=== PATIENT | female | born 1975 | race Caucasian/White ===

== ENCOUNTER → 2017-10-24 13:58 | Outpatient (REF) | payer BC, SELFPAY ==
[2017-10-24 14:57] LABS: Basophils % 0.2 % (0.1-2.0); Eosinophils # 0.1 K/mm3 (0.0-0.4); Eosinophils % 1.3 % (0.1-12.0); Hematocrit 44.1 % (37.0-47.0); Hemoglobin 14.4 g/dL (12.2-16.2); Lymphocytes % 27.9 K/mm3 (10-50); Mean Corpuscular HGB Conc 32.7 g/dL (31.8-35.4); Mean Corpuscular Hemoglobin 29.6 pg (27.0-31.2); Mean Corpuscular Volume 90.4 fl (81-99); Mean Platelet Volume 8.6 fl (7.4-10.4); Monocytes # 0.6 K/mm3 (0.1-1.0); Monocytes % 5.4 % (1.7-9.3); Neutrophils # 6.9 K/mm3 (1.8-7.8); Neutrophils % 65.1 % (37.0-80.0); Platelet Count 271 K/mm3 (142-424); Red Blood Count 4.88 M/mm3 (4.20-5.40); Red Cell Distribution Width 13.6 % (11.5-17.5); White Blood Count 10.6 K/mm3 (4.8-10.8)
[2017-10-24 15:16] LABS: Hemoglobin A1C 5.1 % (0.0-7.0)
[2017-10-24 15:35] LABS: Alanine Aminotransferase 23 U/L (12-78); Albumin Level 4.1 gm/dL (3.4-5.0); Albumin/Globulin Ratio 1.4 (1.1-1.8); Alkaline Phosphatase 118 U/L (46-116); Anion Gap 12.5 mEq/L (5-15); Aspartate Amino Transferase 15 U/L (15-37); Bilirubin,Total 0.3 mg/dL (0.2-1.0); Blood Urea Nitrogen 11 mg/dL (7-18); Calcium 9.6 mg/dL (8.5-10.1); Carbon Dioxide 27 mmol/L (21.0-32.0); Chloride 104 mmol/L (98-107); Chol/HDL Ratio 3.3 (1-3.5); Cholesterol 176 mg/dL (140-200); Creatinine,Serum 0.66 mg/dL (0.55-1.02); Estimated Glomerular Filt Rate 98 ml/min (>60); Free T4 (Free Thyroxine) 1.08 ng/dl (0.76-1.46); GFR (African American) 118 ML/MIN (>60); Glucose 97 mg/dL (74-106); HDL Cholesterol 54 mg/dL (29-89); LDL Cholesterol 96 mg/dL (0-130); Potassium 4.5 mmoL/L (3.5-5.1); Sodium 139 mmol/L (136-145); Thyroid Stimulating Hormone 1.54 uIU/ml (0.358-3.740); Total Protein,Serum 7.1 gm/dL (6.4-8.2); Triglycerides 130 mg/dL (30-200); VLDL Cholesterol 26 mg/dL (0-40)
[2017-10-26 13:31] LABS: Vitamin D 25 Hydroxy 15.2 ng/mL (30.0-100.0)
== END ==
LOC: LAB 13:58
PROVIDERS: Visit Provider Nurse Practitioner Family
DX: R53.83 Other fatigue (principal)
CPT/HCPCS: 80053; 80061; 82652; 83036; 84439; 84443; 85025

== ENCOUNTER → 2017-12-12 13:07 | Outpatient (CLI) | payer BC, SELFPAY ==
[2017-12-13 12:26] LABS: FSH 3.7 mIU/mL (.)
== END ==
PROVIDERS: Visit Provider Obstetrics & Gynecology
DX: N97.0 Female infertility associated with anovulation (principal)
CPT/HCPCS: 36415; 83001; 84144

== ENCOUNTER → 2017-12-14 08:30 | Outpatient (CLI) | payer BC, SELFPAY ==
--- NOTE | 2017-12-14 08:31 | XR_ITS ---
XR foot wt bearing LT 3V HISTORY: ITS.REASON: pain ORDERING PHYSICIAN: Kizzy Longo DPM PATIENT AGE: 42 years COMPARISON: None FINDINGS: No fracture or dislocation. No lytic or blastic change. There is normal mineralization.. The joint spaces are well-preserved. No significant degenerative/arthritic changes. No erosive changes evident. IMPRESSION: Negative, no acute finding
--- NOTE | 2017-12-14 08:31 | XR_ITS ---
XR foot wt bearing RT 3V HISTORY: ITS.REASON: pain ORDERING PHYSICIAN: Kizzy Longo DPM PATIENT AGE: 42 years COMPARISON: None FINDINGS: No fracture or dislocation. No lytic or blastic change. There is normal mineralization.. The joint spaces are well-preserved. No significant degenerative/arthritic changes. No erosive changes evident. IMPRESSION: Negative, no acute finding
== END ==
PROVIDERS: Visit Provider Podiatrist
DX: M79.673 Pain in unspecified foot (principal)
CPT/HCPCS: 73630

== ENCOUNTER 2018-03-07 22:11 | Observation (INO) ==
[2018-03-07 22:34] LABS: Appearance,Urine CLEAR (Clear); Bilirubin,Urine Negative (Negative); Blood, Urine 1+ (Negative); Color,Urine YELLOW (Yellow); Glucose,Urine (UA) Negative (Negative); Ketones,Urine 1+ (Negative); Leukocyte Esterase,Urine Negative (Negative); Microscopic, Urine URINE MICROSCOPIC (MICROSCOPIC); Protein,Urine Negative (Negative); Specific Gravity, Urine 1.025 (1.005-1.030); Urobilinogen,Urine 0.2 EU/dl (0.2)
[2018-03-07 22:40] LABS: Bacteria,Urine 1+ /lpf; Mucus,Urine 1+ /lpf; WBC,Urine Occasional #/hpf (0-3)
[2018-03-07 22:49] LABS: Basophils # 0.1 K/mm3 (0-0.2); Basophils % 0.3 % (0.1-2.0); Eosinophils # 0.1 K/mm3 (0.0-0.4); Eosinophils % 0.5 % (0.1-12.0); Hematocrit 46.2 % (37.0-47.0); Lymphocytes # 3.4 K/mm3 (0.7-4.5); Lymphocytes % 16.1 K/mm3 (10-50); Mean Corpuscular HGB Conc 32.4 g/dL (31.8-35.4); Mean Corpuscular Hemoglobin 29.1 pg (27.0-31.2); Mean Corpuscular Volume 89.6 fl (81-99); Mean Platelet Volume 8.4 fl (7.4-10.4); Monocytes # 0.7 K/mm3 (0.1-1.0); Monocytes % 3.4 % (1.7-9.3); Neutrophils # 16.7 K/mm3 (1.8-7.8); Neutrophils % 79.8 % (37.0-80.0); Platelet Count 270 K/mm3 (142-424); Red Blood Count 5.15 M/mm3 (4.20-5.40); Red Cell Distribution Width 13.8 % (11.5-17.5); White Blood Count 20.9 K/mm3 (4.8-10.8)
[2018-03-07 22:54] LABS: Albumin Level 4.1 gm/dL (3.4-5.0); Albumin/Globulin Ratio 1.1 (1.1-1.8); Anion Gap 10.7 mEq/L (5-15); Bilirubin,Total 0.4 mg/dL (0.2-1.0); Calcium 9.3 mg/dL (8.5-10.1); Globulin 3.7 gm/dl (1.3-3.2); Potassium 3.7 mmoL/L (3.5-5.1); Total Protein,Serum 7.8 gm/dL (6.4-8.2)
--- NOTE | 2018-03-07 23:05 | Emergency Department Note ---
ED Disposition Clinical Impression: Acute appendicitis Qualifiers: Acute appendicitis type: with localized peritonitis Qualified Code(s): K35.3 - Acute appendicitis with localized peritonitis Disposition: Still a Patient Condition on Discharge: Good Instructions: DI for Acute Abdomen Referrals: Ruth Jasmine APRN [Primary Care Provider] - - Critical Care Critical Care Time: No Attestation: On 03/07/18, the high probability of a clinically significant, sudden or life threatening deterioration of the following system(s) required my full and direct attention, intervention and personal management. The time I documented below is in addition to time spent performing reported procedures but includes the following listed in this critical care notation. Medical Decision Making - José Inquiry Pt receiving controlled substance: Yes José was queried for this patient: No Reason not queried -: Emergent pt cond-no time Risks and benefits of using a controlled substance: were not discussed with pt by me Vital Signs: 03/07/18 22:12 03/07/18 22:53 03/07/18 23:25 Temperature 98.5 F 98.5 F Temperature Source Oral Oral Pulse Rate [Left Brachial] 104 H 82 79 Respiratory Rate 15 18 14 Blood Pressure [Left Arm] 134/79 124/75 125/79 Blood Pressure Mean [Left Arm] 97 91 94 Blood Pressure Source [Left Arm] Automatic Cuff Blood Pressure Position [Left Arm] Supine 02 Sat by Pulse Oximetry 95 96 96 Oxygen Delivery Method Room Air - Lab Data Lab Results 03/07/18 22:28: Urine Color Yellow, Urine Appearance Clear, Urine pH 6.0, Ur Specific [place] 1.025, Urine Protein Negative, Urine Glucose (UA) Negative, Urine Ketones 1+, Urine Blood 1+, Urine Nitrate Negative, Urine Bilirubin Negative, Urine Urobilinogen 0.2, Ur Leukocyte Esterase Negative, Urine RBC 3-5, Urine WBC Occasional, Ur Squamous Epith Cells 3-5, Urine Bacteria 1+, Urine Mucus 1+ 03/07/18 22:30: WBC 20.9 H*, RBC 5.15, Hgb 15.0, Hct 46.2, MCV 89.6, MCH 29.1, MCHC 32.4, RDW 13.8, Plt Count 270, MPV 8.4, Neut % (Auto) 79.8, Lymph % (Auto) 16.1, [place] % (Auto) 3.4, Eos % (Auto) 0.5, Baso % (Auto) 0.3, Neut # (Auto) 16.7 H, Lymph # (Auto) 3.4, [place] # (Auto) 0.7, Eos # (Auto) 0.1, Baso # (Auto) 0.1, Total Counted 100, Neutrophils % (Manual) 84 H, Lymphocytes % (Manual) 14, Monocytes % (Manual) 1 L, Eosinophils % (Manual) 1, Platelet Estimate Normal, Anisocytosis 1+ 03/07/18 22:30: Urine HCG, Qual Negative 03/07/18 22:30: Sodium 136, Potassium 3.7, Chloride 102, Carbon Dioxide 27, Anion Gap 10.7, BUN 7, Creatinine 0.61, Estimated Creat Clear 119, Estimated GFR 107, Est GFR ( Amer) 129, Glucose 96, Calcium 9.3, Total Bilirubin 0.4, AST 12 L, ALT 23, Alkaline Phosphatase 121 H, Total Protein 7.8, Albumin 4.1, Globulin 3.7 H, Albumin/Globulin Ratio 1.1, Amylase 62, Lipase 93 03/07/18 22:30: Troponin I < 0.02 Result diagrams: 03/07/18 22:30 03/07/18 22:30 Orders (Tests/Meds): ED MEDICATIONS Generic Name Dose Route Start Last Admin Trade Name Freq PRN Reason Stop Dose Admin Sodium Chloride 1,000 mls @ 150 mls/hr 03/08/18 00:15 Sod Chlor 0.9% 1000ml Bag IV 03/08/18 06:54 .[id number] KIT Discontinued Medications Generic Name Dose Route Start Last Admin Trade Name Freq PRN Reason Stop Dose Admin Famotidine 20 mg 03/07/18 22:22 03/07/18 22:29 Pepcid 20mg/2ml Vial IV 03/07/18 22:23 20 mg ONCE ONE Administration Sodium Chloride 1,000 mls @ 999 mls/hr 03/07/18 22:30 03/07/18 22:30 Sod Chlor 0.9% 1000ml Bag IV 03/07/18 23:30 999 mls/hr .Q1H1M KIT Administration Metoclopramide HCl 10 mg 03/07/18 22:22 03/07/18 22:30 Reglan 10mg/2ml Vial IVP 03/07/18 22:23 10 mg ONCE ONE Administration Ondansetron HCl 4 mg 03/07/18 22:22 03/07/18 22:30 Zofran 4mg/2ml Vial IV 03/07/18 22:23 4 mg ONCE ONE Administration ORDERS Category Date Time Status CT abdomen pelvis w con Stat Cat Scan 03/07/18 22:44 Ordered Urinalysis and Microscopic Stat Lab 03/07/18 22:28 Ordered - CT Data CT Scan: Abdomen, Pelvis Time Received: 00:[address] Reviewed: Yes: I discussed the CT results w/the radiologist, I have viewed the radiologist's interpretation Findings Narrative: CT scan interpreted by [facility] radiologist. Discussed with radiologist. Faxed report received and reviewed: Appendix is widened with a mildly thickened enhancing wall, particularly at the base. There is debris within the lumen of the appendix. No significant inflammatory changes in the periappendiceal fat. Findings could represent early acute appendicitis. Hiatal hernia. - ECG Data Tracing #1 EKG interpreted by Irwin Goodson MD: Rhythm: sinus Rate: 81 [place]: normal Ectopy: none Conduction: normal ST Segment Changes: none T Wave Changes: none Q Waves: none No evidence of acute ischemia or injury - Physician Consults Physician Consulted: Damien Time: 00:11 Reason -: Admission Comment/Response: Agrees to admit the patient to the hospital. We discussed the patient's clinical information, including history, exam, laboratory and radiology results and ED course. Per hospital procedure, I will write temporary bridge inpatient orders on the patient. Specific orders requested by the adm itting physician: States he will do surgery in the morning. Admit, antibiotics, IV fluids. General Adult HPI - General Chief complaint: Abdominal Pain Stated complaint: abd pain Time Seen by Provider: 03/07/18 23:23 Mode of Arrival: Ambulatory Limitations: No Limitations Description of Symptoms (Recalled from ER Triage Doc. by RN): Reports midgastric abdominal pain that started around 2230 last night. - History of Present Illness HPI narrative: 24-hour history of mid epigastric pain that goes over to her right upper quadrant area. Denies fever, nausea, vomiting, diarrhea, urinary symptoms. Had similar symptoms a month or 2 ago that lasted for a couple of hours and went away. No prior history of abdominal problems or surgeries. - Related Data Home Medications Medication Instructions Recorded Confirmed No Known Home Medications 03/07/18 03/07/18 Allergies Allergy/AdvReac Type Severity Reaction Status Date / Time No Known Allergies Allergy Verified 01/16/18 11:17 [facility] History I have reviewed the patient's past medical history: Yes Medical History: Denies:: Anxiety, Cancer, Depression, Diabetes Mellitus Type 1, Diabetes Mellitus Type 2, Hyperlipidemia, Hypertension, Migraine, MRSA, Seizures Other Medical History: Reports: Other Comment: CYSTS IN RIGHT HAND, Vitamin D Deficiency Laterality Cases: Bilateral: Other Other Surgeries: Yes: Other Amputation: No Fractures: No Comment: RIGHT HAND CYST REMOVAL, 2009 - Social History Smoking Status: Current every day smoker Tobacco Type: cigarettes # Packs/Day (cigarettes): 1 Alcohol Intake: never Alcohol Intake Frequency:: a few times a week Substance Use Type: denies use Occupational Status: employed Housing: house Household Members: family - Psychiatric History Expresses thoughts of harming self/others: None Suicide Plan Description: No Plan Pschychiatric History:: Denies:: Anxiety, Depression Family Hx:: Cancer, Heart Attack, Diabetes, Stroke, Hypertension Comment: [place], BACK SURGERY ROS Obtained: Yes All systems reviewed & no additional complaints - Constitutional Constitutional: Denies fever(s) - Cardiovascular Cardiovascular: Denies chest pain - Respiratory Respiratory: No cough - Gastrointestinal Gastrointestingal: Reports: abdominal pain. Denies: diarrhea, nausea, vomiting - Genitourinary Female Genitourinary: Denies dysuria, Denies flank pain Physical Exam - General General appearance: alert, in no apparent distress - Head Head exam: atraumatic, normocephalic, normal inspection - Eye Eye exam: Present: normal appearance, PERRL, EOMI - ENT ENT exam: Present: normal exam, normal oropharynx, mucous membranes moist, TM's normal bilaterally, normal external ear exam - Neck Neck exam: Present: normal inspection, full ROM, trachea midline. Absent: meningismus, lymphadenopathy - Chest Chest inspection: Present: normal inspection, symmetric chest wall rise. Absent: tenderness - Respiratory Respiratory exam: Present: normal lung sounds bilaterally. Absent: respiratory distress - Cardiovascular Cardiovascular exam: Present: regular rate, normal rhythm. Absent: JVD - Abdominal Exam Abdominal exam: Present: soft, normal bowel sounds. Absent: distention, guarding Abdominal tenderness: Present: RLQ, epigastrium - Extremities Exam Extremities exam: Present: normal inspection, full ROM, normal capillary refill. Absent: calf tenderness - Back Exam Back exam: Present: normal inspection. Absent: tenderness - Neurological Exam Neurological exam: Present: alert, oriented X3 - Psychiatric Psychiatric exam: Present: normal affect, normal mood - Skin Skin exam: Present: warm, dry, intact, normal color - Lymphatic Lymphatic Findings: no adenopathy
[2018-03-07 23:17] LABS: Eosinophils % 1 % (0-3); Lymphocytes % 14 % (10-50); Monocytes % 1 % (2-9); Neutrophils % 84 % (42-76); Total Cells Counted 100
[2018-03-07 23:18] LABS: Anisocytosis 1+
--- NOTE | 2018-03-08 06:49 | History & Physical Report ---
HPI HPI: This is a 43-year-old female who presented overnight to the emergency department with abdominal pain. Evaluation revealed a leukocytosis and radiographic evidence of early appendicitis. The surgical service was consulted and she was admitted for observation with plans to undergo laparoscopic appendectomy early today. Although her initial complaints were seemingly more epigastric and right mid/upper quadrant, she now states that her pain was mostly in the mid abdomen and that she noticed progression to the right mid and lower quadrant. Please see HPI from her emergency department visit forwarded below: 24-hour history of mid epigastric pain that goes over to her right upper quadrant area. Denies fever, nausea, vomiting, diarrhea, urinary symptoms. Had similar symptoms a month or 2 ago that lasted for a couple of hours and went away. No prior history of abdominal problems or surgeries. [facility] History Medical History: Denies:: Anxiety, Cancer, Depression, Diabetes Mellitus Type 1, Diabetes Mellitus Type 2, Hyperlipidemia, Hypertension, Migraine, MRSA, Seizures Other Medical History: Reports: Other Laterality Cases: Left: Arthroscopy Knee, Bilateral: Other Other Surgeries: Yes: Other Amputation: No Fractures: No - *Social History Educational Level: Attended High School Smoking Status: Current every day smoker Tobacco Type: cigarettes # Packs/Day (cigarettes): 1 #Yrs smoked (if former smoker): 30 Alcohol Intake: never Alcohol Intake Frequency:: a few times a week Substance Use Type: denies use Occupational Status: employed Housing: house Household Members: family - Psychiatric History Expresses thoughts of harming self/others: None Suicide Plan Description: No Plan Pschychiatric History:: Denies:: Anxiety, Depression *Family Hx:: Cancer, Heart Attack, Diabetes, Stroke, Hypertension Review of Systems - Constitutional Denies anorexia, Denies body ache(s) - Eyes Denies change in vision - ENT Denies change in voice - *Cardiovascular Denies chest pain - *Respiratory Denies cough - *Gastrointestinal Reports abdominal pain, Denies bright, red blood in stools, Denies nausea, Denies vomiting - *Genitourinary Denies painful urination - *Musculoskeletal Denies abnormal walking - Integumentary/Breasts Denies changing lesions - *Neurologic Denies frequent falls - Psychiatric Denies anxiety - Endocrine Denies cold intolerance - Hematologic/Lymphatic Denies easy bleeding - Allergic/Immunologic Denies GI upset with certain foods Meds Home Medications Medication Instructions Recorded Confirmed Type No Known Home Medications 03/07/18 03/07/18 History Allergies Allergy/AdvReac Type Severity Reaction Status Date / Time No Known Allergies Allergy Verified 01/16/18 11:17 Exam Vital signs and Labs for Last 24 Hours: Temp Pulse Resp BP Pulse Ox 98.7 F 84 16 106/61 96 03/08/18 04:00 03/08/18 04:00 03/08/18 04:00 03/08/18 04:00 03/08/18 04:00 Laboratory Results - last 24 hr 03/07/18 22:28: Urine Color Yellow, Urine Appearance Clear, Urine pH 6.0, Ur Specific [place] 1.025, Urine Protein Negative, Urine Glucose (UA) Negative, Urine Ketones 1+, Urine Blood 1+, Urine Nitrate Negative, Urine Bilirubin Negative, Urine Urobilinogen 0.2, Ur Leukocyte Esterase Negative, Urine RBC 3-5, Urine WBC Occasional, Ur Squamous Epith Cells 3-5, Urine Bacteria 1+, Urine Mucus 1+ 03/07/18 22:30: WBC 20.9 H*, RBC 5.15, Hgb 15.0, Hct 46.2, MCV 89.6, MCH 29.1, MCHC 32.4, RDW 13.8, Plt Count 270, MPV 8.4, Neut % (Auto) 79.8, Lymph % (Auto) 16.1, [place] % (Auto) 3.4, Eos % (Auto) 0.5, Baso % (Auto) 0.3, Neut # (Auto) 16.7 H, Lymph # (Auto) 3.4, [place] # (Auto) 0.7, Eos # (Auto) 0.1, Baso # (Auto) 0.1, Total Counted 100, Neutrophils % (Manual) 84 H, Lymphocytes % (Manual) 14, Monocytes % (Manual) 1 L, Eosinophils % (Manual) 1, Platelet Estimate Normal, Anisocytosis 1+ 03/07/18 22:30: Urine HCG, Qual Negative 03/07/18 22:30: Sodium 136, Potassium 3.7, Chloride 102, Carbon Dioxide 27, Anion Gap 10.7, BUN 7, Creatinine 0.61, Estimated Creat Clear 119, Estimated GFR 107, Est GFR ( Amer) 129, Glucose 96, Calcium 9.3, Total Bilirubin 0.4, AST 12 L, ALT 23, Alkaline Phosphatase 121 H, Total Protein 7.8, Albumin 4.1, Globulin 3.7 H, Albumin/Globulin Ratio 1.1, Amylase 62, Lipase 93 03/07/18 22:30: Troponin I < 0.02 03/08/18 00:35: Lactate 0.9 I & O for Last 24 hours: Intake & Output 03/05/18 03/06/18 03/07/18 03/08/18 11:59 11:59 11:59 11:59 Intake Total 2094 Balance 2094 Weight 145 lb 1.027 oz - Constitutional no acute distress - *Routine HEENT Exam Head: Present: normocephalic, atraumatic Eye: Present: PERRL ENT: Present: mucous membranes moist - *Routine Neck Exam Present: supple, full ROM - Routine Chest/Breast/Axilla Exam Chest wall: Absent: tenderness - *Routine Respiratory Exam Absent: respiratory distress - *Routine Cardiovascular Exam Present: RRR - *Routine Abdominal Exam Present: soft, tenderness. Absent: distended, rebound, guarding Comments: mid and right abdomen - *Routine Extremities Exam Present: full ROM. Absent: cyanosis, clubbing, edema - Routine Back/Spine/Pelvis Exam Back/Spine: Present: full ROM - *Routine Skin Exam Present: intact - *Routine Neurological Exam Present: alert, oriented X3 - Routine Psychiatric Exam Present: normal affect Results - Results Lab Results Last 24 Hours:: Laboratory Results - last 24 hr 03/07/18 22:28: Urine Color Yellow, Urine Appearance Clear, Urine pH 6.0, Ur Specific [place] 1.025, Urine Protein Negative, Urine Glucose (UA) Negative, Urine Ketones 1+, Urine Blood 1+, Urine Nitrate Negative, Urine Bilirubin Negative, Urine Urobilinogen 0.2, Ur Leukocyte Esterase Negative, Urine RBC 3-5, Urine WBC Occasional, Ur Squamous Epith Cells 3-5, Urine Bacteria 1+, Urine Mucus 1+ 03/07/18 22:30: WBC 20.9 H*, RBC 5.15, Hgb 15.0, Hct 46.2, MCV 89.6, MCH 29.1, MCHC 32.4, RDW 13.8, Plt Count 270, MPV 8.4, Neut % (Auto) 79.8, Lymph % (Auto) 16.1, [place] % (Auto) 3.4, Eos % (Auto) 0.5, Baso % (Auto) 0.3, Neut # (Auto) 16.7 H, Lymph # (Auto) 3.4, [place] # (Auto) 0.7, Eos # (Auto) 0.1, Baso # (Auto) 0.1, Total Counted 100, Neutrophils % (Manual) 84 H, Lymphocytes % (Manual) 14, Monocytes % (Manual) 1 L, Eosinophils % (Manual) 1, Platelet Estimate Normal, Anisocytosis 1+ 03/07/18 22:30: Urine HCG, Qual Negative 03/07/18 22:30: Sodium 136, Potassium 3.7, Chloride 102, Carbon Dioxide 27, Anion Gap 10.7, BUN 7, Creatinine 0.61, Estimated Creat Clear 119, Estimated GFR 107, Est GFR ( Amer) 129, Glucose 96, Calcium 9.3, Total Bilirubin 0.4, AST 12 L, ALT 23, Alkaline Phosphatase 121 H, Total Protein 7.8, Albumin 4.1, Globulin 3.7 H, Albumin/Globulin Ratio 1.1, Amylase 62, Lipase 93 03/07/18 22:30: Troponin I < 0.02 03/08/18 00:35: Lactate 0.9 CT scan - abdomen: report reviewed, image reviewed CT scan - pelvis: report reviewed, image reviewed Assessment and Plan (1) Acute appendicitis Current visit: Yes Status: Acute Qualifiers: Acute appendicitis type: with localized peritonitis Qualified Code(s): K35.3 - Acute appendicitis with localized peritonitis Category: Medical Code(s): K35.80 - Unspecified acute appendicitis Radiographic evidence of early appendicitis. Continue antibiotics She is being scheduled for laparoscopic appendectomy early today. I have discussed the risks and benefits including, but not limited to: Bleeding Infection Damage to surrounding tissue Inherent risks of sedation The patient agrees to proceed.
--- NOTE | 2018-03-08 07:50 | Pharmacy Consult Notes ---
[facility] Pharmacy VTE Monitoring - Patient Demographics Admission date: 03/08/18 Report Date: 03/08/18 Time: 07:50 Allergies/Adverse Reactions: Patient Allergies No Known Allergies Allergy (Verified 01/16/18 11:17) Height: 1.52 m Weight: 65.8 kg Patient Problems: Current Active Problems Acute appendicitis (Acute) - VTE Risk Labs: VTE Related Lab Results Hgb 15.0 g/dL (12.2-16.2) 03/07/18 22:30 Hct 46.2 % (37.0-47.0) 03/07/18 22:30 Plt Count 270 K/mm3 (142-424) 03/07/18 22:30 BUN 7 mg/dL (7-18) 03/07/18 22:30 Creatinine 0.61 mg/dL (0.55-1.02) 03/07/18 22:30 Estimated Creat Clear 119 mL/min (0-300) 03/07/18 22:30 Was VTE Risk Assessment Performed: Yes VTE Score: 1 VTE Risk Level: Very Low Risk Clinical Trial Participant: No - Prophylaxis VTE Prophylaxis Ordered?: Yes Types of VTE Prophylaxis: TEDS Knee High Location of Applied Device: Bilateral Lower Extremeties
--- NOTE | 2018-03-08 08:30 | Progress Note ---
[facility] Anesthesia Checklist - Structural Data Admitted From: Inpatient Planned Operative Procedure/s: lap appy Consent for Planned Operative Procedure(s) Verified: Yes - Airway Assessment C-Spine Mobility Assessed: Yes TMJ Mobility Assessed: Yes Dentition: Good Dentition - Neurological Assessment Level of Consciousness: Awake, Alert, Appropriate - Anesthesia Plan Anesthesia Risk discussed: Yes Anesthesia Plan: Verified ASA Class: II Anesthesia Type: General [facility] History I have reviewed the patient's past medical history: Yes Medical History: Denies:: Anxiety, Cancer, Depression, Diabetes Mellitus Type 1, Diabetes Mellitus Type 2, Hyperlipidemia, Hypertension, Migraine, MRSA, Seizures Other Medical History: Reports: Other Laterality Cases: Left: Arthroscopy Knee, Bilateral: Other Other Surgeries: Yes: Other Amputation: No Fractures: No - *Social History Educational Level: Attended High School Smoking Status: Current every day smoker Tobacco Type: cigarettes # Packs/Day (cigarettes): 1 #Yrs smoked (if former smoker): 30 Alcohol Intake: never Alcohol Intake Frequency:: a few times a week Substance Use Type: denies use Occupational Status: employed Housing: house Household Members: family - Psychiatric History Expresses thoughts of harming self/others: None Suicide Plan Description: No Plan Pschychiatric History:: Denies:: Anxiety, Depression *Family Hx:: Cancer, Heart Attack, Diabetes, Stroke, Hypertension
--- NOTE | 2018-03-08 10:21 | Operative Note ---
Date of procedure: 03/08/18 Pre-op Diagnosis:: Appendicitis Post-op Diagnosis:: Suppurative appendicitis with no sign of perforation Procedure performed:: Laparoscopic appendectomy Surgeon:: Claude Quezada MD Placement Specialist(s):: Carole Anesthesia: GETA Estimated blood loss (mL): 25 Operative findings:: Suppurative appendicitis with significant inflammatory changes and adhesions between small bowel and appendix Operative note:: After informed consent was obtained the patient was taken to the operating room and placed in the supine position. General anesthesia was induced and her abdomen was prepped and draped in a sterile fashion. After infiltration with local anesthetic an infraumbilical incision was made. A Veress needle was placed in position. The abdomen was insufflated. A 12 mm optical trocar was placed in position. Under direct visualization a 5 mm trocar was placed in the suprapubic position and an additional 5 mm trocar was placed in the left lower quadrant. The appendix was carefully elevated. The appendix was inflamed and enlarged and suppurative changes were noted. Significant adhesions between the distal/terminal ileum and appendix were noted. Blunt dissection was utilized to carefully separate the small bowel from the appendiceal margin. Harmonic china were then utilized to take the mesoappendix. A EUGENE stapler was utilized to transect the appendix at its base. The appendix was placed in a retrieval bag and removed through the infraumbilical trocar site. A small amount of sanguinous ooze was noted and a small bleeding vessel emanating from the mesoappendix was clipped for control. No additional bleeding was noted. The entire area was irrigated. No sign of injury or sign of abscess pockets were noted. The fascia at the infraumbilical trocar site was reapproximated with 0 Ethibond. Pneumoperitoneum was released as the remaining trocars were removed. All wounds were irrigated and skin was closed with 4-0 Monocryl. Dressings were applied. The patient's anesthetic agents were reversed and she was extubated prior to transfer to recovery. Condition: stable Disposition: PACU Specimens:: Appendix Complications:: No immediate
--- NOTE | 2018-03-08 10:32 | Progress Note ---
[facility] Anesthesia Record Part I Intake, IV Amount: 900 Estimated blood loss (mL): 10 Urine output (mL): 100 Blood Products used (#): none Blood Pressure: 122/60 SaO2: 96 Pulse Rate: 112 Respiratory Rate: 14 Temperature: 97.5 F Patient is:: Awake, Stable Stable to PACU at:: 10:30
--- NOTE | 2018-03-08 10:32 | Progress Note ---
[facility] Anesthesia Record Part II Discharge Time: 11:00 Destination: Medical Surgical Department PACU nurse assessment reviewed?: Yes Patient Condition:: Good Anesthesia Complications:: None
[2018-03-09 06:42] LABS: Basophils % 0.1 % (0.1-2.0); Eosinophils % 0.2 % (0.1-12.0); Hematocrit 33.4 % (37.0-47.0); Hemoglobin 10.9 g/dL (12.2-16.2); Lymphocytes # 2.5 K/mm3 (0.7-4.5); Lymphocytes % 20.2 K/mm3 (10-50); Mean Corpuscular HGB Conc 32.5 g/dL (31.8-35.4); Mean Corpuscular Hemoglobin 29.3 pg (27.0-31.2); Mean Corpuscular Volume 90.2 fl (81-99); Mean Platelet Volume 8.5 fl (7.4-10.4); Monocytes # 0.6 K/mm3 (0.1-1.0); Monocytes % 5.2 % (1.7-9.3); Neutrophils # 9.2 K/mm3 (1.8-7.8); Neutrophils % 74.3 % (37.0-80.0); Platelet Count 237 K/mm3 (142-424); White Blood Count 12.4 K/mm3 (4.8-10.8)
--- NOTE | 2018-03-09 07:10 | Progress Note ---
Subjective Patient reports: no new complaints, feels better Exam Vital signs and Labs for Last 24 Hours: Temp Pulse Resp BP Pulse Ox 98.4 F 70 14 116/65 96 03/09/18 04:10 03/09/18 04:10 03/09/18 04:10 03/09/18 04:10 03/09/18 04:10 Laboratory Results - last 24 hr 03/08/18 09:27: Urine Color Yellow, Urine Appearance Clear, Urine pH 6.0, Ur Specific [place] 1.020, Urine Protein Negative, Urine Glucose (UA) Negative, Urine Ketones Negative, Urine Blood Trace-l, Urine Nitrate Negative, Urine Bilirubin Negative, Urine Urobilinogen 0.2, Ur Leukocyte Esterase Negative, Urine RBC Occasional, Urine WBC 3-5, Ur Squamous Epith Cells 5-10, Urine Bacteria Trace 03/09/18 05:55: WBC 12.4 H D, RBC 3.70 L D, Hgb 10.9 L, Hct 33.4 L, MCV 90.2, MCH 29.3, MCHC 32.5, RDW 14.0, Plt Count 237, MPV 8.5, Neut % (Auto) 74.3, Lymph % (Auto) 20.2, [place] % (Auto) 5.2, Eos % (Auto) 0.2, Baso % (Auto) 0.1, Neut # (Auto) 9.2 H, Lymph # (Auto) 2.5, [place] # (Auto) 0.6, Eos # (Auto) 0.0, Baso # (Auto) 0.0 I & O for Last 24 hours: Intake & Output 03/06/18 03/07/18 03/08/18 03/09/18 11:59 11:59 11:59 11:59 Intake Total 2995 / 2995 931 / 931 Output Total 300 / 300 300 / 300 Balance 2695 / 2695 631 / 631 Weight 145 lb 1.027 oz Narrative: Began Toradol for postoperative shoulder pain yesterday evening. - Constitutional no acute distress - *Routine Cardiovascular Exam Present: RRR - *Routine Abdominal Exam Present: soft Comments: no cellulitis Progress Note: A&P (1) Acute appendicitis Status: Acute Assessment and plan: Somewhat suppurative appendicitis. Continue antibiotics Likely discharge home later today Advance to full liquid Current Visit: Yes
--- NOTE | 2018-03-09 11:52 | Discharge Summary ---
General - General Admission date:: 03/08/18 Discharge date: 03/09/18 HPI HPI: This is a 43-year-old female who presented to the emergency department with increasing pain mostly along the right abdomen. Evaluation revealed a leukocytosis and radiographic evidence of appendicitis. The surgical service was consulted for evaluation and management. Hospital Course Hospital Course: The plan underwent laparoscopic appendectomy. Please see operative report for detail. She was found to have suppurative appendicitis and was maintained in observation since overnight. She remained afebrile with blood vital signs. Her leukocytosis had improved on the postoperative day 1. She had return of bowel function and was deemed appropriate for discharge on the afternoon of postoperative day 1. Objective Vital signs: Temp Pulse Resp BP Pulse Ox 98.1 F 63 18 120/70 97 03/09/18 07:59 03/09/18 07:59 03/09/18 07:59 03/09/18 07:59 03/09/18 07:59 no acute distress - *Routine HEENT Exam Head: Present: normocephalic, atraumatic - *Routine Neck Exam Present: full ROM - Routine Chest/Breast/Axilla Exam Chest wall: Absent: tenderness - *Routine Respiratory Exam Absent: respiratory distress - *Routine Cardiovascular Exam Present: RRR - *Routine Abdominal Exam Present: soft, tenderness - *Routine Extremities Exam Present: full ROM. Absent: cyanosis, clubbing, edema - Routine Back/Spine/Pelvis Exam Back/Spine: Present: full ROM - *Routine Skin Exam Present: intact - *Routine Neurological Exam Present: alert, oriented X3 - Routine Psychiatric Exam Present: normal affect Results Labs on day of discharge: Labs from last 24 hours 03/09/18 03/08/18 05:55 09:27 WBC 12.4 H D RBC 3.70 L D Hgb 10.9 L Hct 33.4 L MCV 90.2 MCH 29.3 MCHC 32.5 RDW 14.0 Plt Count 237 MPV 8.5 Neut % (Auto) 74.3 Lymph % (Auto) 20.2 [place] % (Auto) 5.2 Eos % (Auto) 0.2 Baso % (Auto) 0.1 Neut # (Auto) 9.2 H Lymph # (Auto) 2.5 [place] # (Auto) 0.6 Eos # (Auto) 0.0 Baso # (Auto) 0.0 Urine Color Yellow Urine Appearance Clear Urine pH 6.0 Ur Specific [place] 1.020 Urine Protein Negative Urine Glucose (UA) Negative Urine Ketones Negative Urine Blood Trace-l Urine Nitrate Negative Urine Bilirubin Negative Urine Urobilinogen 0.2 Ur Leukocyte Esterase Negative Urine RBC Occasional Urine WBC 3-5 Ur Squamous Epith Cells 5-10 Urine Bacteria Trace DS: Diagnosis - Discharge Diagnosis (1) Acute appendicitis Status: Acute Problem details: Suppurative appendicitis. Discharge Plan - Patient Discharge Instructions ACTIVITY: No heavy lifting DIET: advance to your usual diet - Follow up Plan Follow up with: Claude Quezada MD [Staff Physician] - (1-2 weeks) Disposition: Home, Self-Fpc Medications: Home Medications Medication Instructions Recorded Confirmed Type No Known Home Medications 03/07/18 03/07/18 History Prescriptions/Medication Reconciliation: Continue No Known Home Medications
== END 2018-03-09 12:34 | disposition home or self-care (01) ==
LOC: ER 22:11 → 2ND 03-08 00:22 → INTOOBSV 03-08 01:05 → 2ND 03-08 01:06
PROVIDERS: ADMIT Surgery; ATTEND Surgery
CPT/HCPCS: 36415; 74177; 80053; 81001; 81025; 82150; 83605; 83690; 84484; 85007; 85025; 87040; 93005; 96365; 96367; 96375; 96376; 99285; G0378; J1335; J2405; J2710; Q9967

== ENCOUNTER → 2019-02-15 14:27 | Outpatient (CLI) | payer BC, SELFPAY ==
[2019-02-15 15:19] LABS: Basophils % 0.4 % (0.1-2.0); Eosinophils # 0.1 K/mm3 (0.0-0.4); Eosinophils % 1.3 % (0.1-12.0); Lymphocytes # 2.6 K/mm3 (0.7-4.5); Lymphocytes % 27.2 % (10-50); Mean Corpuscular HGB Conc 32.5 g/dL (31.8-35.4); Mean Corpuscular Hemoglobin 30.2 pg (27.0-31.2); Mean Corpuscular Volume 92.7 fl (81-99); Mean Platelet Volume 8.5 fl (7.4-10.4); Monocytes # 0.5 K/mm3 (0.1-1.0); Monocytes % 5.1 % (1.7-9.3); Neutrophils # 6.4 K/mm3 (1.8-7.8); Neutrophils % 65.8 % (37.0-80.0); Platelet Count 288 K/mm3 (142-424); Red Blood Count 4.64 M/mm3 (4.20-5.40); Red Cell Distribution Width 13.8 % (11.5-17.5); White Blood Count 9.7 K/mm3 (4.8-10.8)
[2019-02-15 17:42] LABS: Alanine Aminotransferase 24 U/L (12-78); Alkaline Phosphatase 107 U/L (46-116); Anion Gap 14.2 mEq/L (5-15); Aspartate Amino Transferase 17 U/L (15-37); Bilirubin,Total 0.2 mg/dL (0.2-1.0); Carbon Dioxide 24 mmol/L (21.0-32.0); Chloride 105 mmol/L (98-107); Chol/HDL Ratio 2.4 (1-3.5); Cholesterol 165 mg/dL (140-200); Creatinine,Serum 0.63 mg/dL (0.55-1.02); Estimated Glomerular Filt Rate 102 ml/min (>60); GFR (African American) 124 ML/MIN (>60); HDL Cholesterol 70 mg/dL (29-89); LDL Cholesterol 85 mg/dL (0-130); Potassium 4.2 mmoL/L (3.5-5.1); Sodium 139 mmol/L (136-145); T4 (Thyroxine) 7.2 ug/dl (4.7-13.3); Thyroid Stimulating Hormone 1.18 uIU/ml (0.358-3.740); Total Protein,Serum 6.7 gm/dL (6.4-8.2); Triglycerides 48 mg/dL (30-200); VLDL Cholesterol 10 mg/dL (0-40)
[2019-02-15 18:00] LABS: Albumin Level 3.8 gm/dL (3.4-5.0); Albumin/Globulin Ratio 1.3 (1.1-1.8); Blood Urea Nitrogen 12 mg/dL (7-18); Calcium 8.9 mg/dL (8.5-10.1); Globulin 2.9 gm/dl (1.3-3.2); Glucose 91 mg/dL (74-106)
[2019-02-15 19:05] LABS: Erythrocyte Sedimentation Rate 11 mm/hr (0-20)
[2019-02-15 19:07] LABS: C-Reactive Protein < 0.2 mg/dL (0.0-0.9)
[2019-02-18 09:54] LABS: RA Latex Turbid. <10.0 IU/mL (0.0-13.9)
[2019-02-18 09:55] LABS: Vitamin D 25 Hydroxy 20.1 ng/mL (30.0-100.0)
[2019-02-18 15:16] LABS: Anti-Centromere B Antibodies <0.2 AI (0.0-0.9); Anti-Jo-1 <0.2 AI (0.0-0.9); Anti-Smith Antibody <0.2 AI (0.0-0.9); Antichromatin Antibodies 0.2 AI (0.0-0.9); Antiscleroderma-70 Antibodies <0.2 AI (0.0-0.9); RNP Antibodies <0.2 AI (0.0-0.9); Sjogren's Anti-SS-A <0.2 AI (0.0-0.9); Sjogren's Anti-SS-B <0.2 AI (0.0-0.9)
[2019-02-19 10:31] LABS: Anti-Cyclic Citrullinated Pept 6 units (0-19); Anti-DNA (DS) Ab Qn <1 IU/mL (0-9)
== END ==
PROVIDERS: Visit Provider Nurse Practitioner Family
DX: F32.9 Major depressive disorder, single episode, unspecified (principal); R20.2 Paresthesia of skin; R51 Headache
CPT/HCPCS: 80053; 80061; 82652; 84436; 84443; 85025; 85651; 86140; 86200; 86225; 86235; 86431

== ENCOUNTER → 2019-03-27 10:07 | Outpatient (CLI) | payer BC, SELFPAY ==
[2019-03-27 10:32] LABS: Amylase 60 U/L (25-115); Lipase 108 u/L (73-393)
[2019-03-27 10:40] LABS: Basophils % 0.3 % (0.1-2.0); Eosinophils # 0.2 K/mm3 (0.0-0.4); Eosinophils % 1.4 % (0.1-12.0); Hematocrit 42.5 % (37.0-47.0); Lymphocytes # 2.8 K/mm3 (0.7-4.5); Lymphocytes % 23.9 % (10-50); Mean Corpuscular HGB Conc 30.5 g/dL (31.8-35.4); Mean Corpuscular Hemoglobin 29.1 pg (27.0-31.2); Mean Corpuscular Volume 95.2 fl (81-99); Mean Platelet Volume 8.1 fl (7.4-10.4); Monocytes # 0.6 K/mm3 (0.1-1.0); Monocytes % 5.1 % (1.7-9.3); Neutrophils # 8.2 K/mm3 (1.8-7.8); Neutrophils % 69.3 % (37.0-80.0); Platelet Count 298 K/mm3 (142-424); Red Blood Count 4.47 M/mm3 (4.20-5.40); White Blood Count 11.8 K/mm3 (4.8-10.8)
[2019-03-27 10:50] LABS: Alanine Aminotransferase 91 U/L (12-78); Albumin Level 3.7 gm/dL (3.4-5.0); Albumin/Globulin Ratio 1.1 (1.1-1.8); Alkaline Phosphatase 152 U/L (46-116); Anion Gap 10.8 mEq/L (5-15); Aspartate Amino Transferase 38 U/L (15-37); Bilirubin,Total 0.4 mg/dL (0.2-1.0); Blood Urea Nitrogen 13 mg/dL (7-18); Calcium 8.7 mg/dL (8.5-10.1); Carbon Dioxide 30 mmol/L (21.0-32.0); Chloride 101 mmol/L (98-107); Creatinine,Serum 0.58 mg/dL (0.55-1.02); Estimated Glomerular Filt Rate 112 ml/min (>60); GFR (African American) 136 ML/MIN (>60); Globulin 3.3 gm/dl (1.3-3.2); Glucose 101 mg/dL (74-106); Potassium 3.8 mmoL/L (3.5-5.1); Sodium 138 mmol/L (136-145)
[2019-03-28 10:25] LABS: Hep A Ab, IgM Negative (Negative); Hepatitis B Core Antibody IgM Negative (Negative); Hepatitis B Surface Antigen Negative (Negative)
[2019-03-28 17:11] LABS: Hepatitis C Antibody 0.1 s/co ratio (0.0-0.9)
== END ==
PROVIDERS: Emergency Medicine; PCP Nurse Practitioner Family; Visit Provider Surgery
DX: R10.11 Right upper quadrant pain (principal); R74.8 Abnormal levels of other serum enzymes
CPT/HCPCS: 36415; 80053; 80074; 82150; 83690; 85025

== ENCOUNTER → 2020-02-26 13:12 | Outpatient (CLI) | payer BC, SELFPAY ==
[2020-02-26 13:51] LABS: Basophils % 0.4 % (0.1-2.0); Eosinophils # 0.1 K/mm3 (0.0-0.4); Hematocrit 41.5 % (37.0-47.0); Hemoglobin 14.6 g/dL (12.2-16.2); Lymphocytes # 2.3 K/mm3 (0.7-4.5); Lymphocytes % 21.6 % (10-50); Mean Corpuscular HGB Conc 35.1 g/dL (31.8-35.4); Mean Corpuscular Hemoglobin 32.1 pg (27.0-31.2); Mean Corpuscular Volume 91.6 fl (81-99); Mean Platelet Volume 7.8 fl (7.4-10.4); Monocytes # 0.6 K/mm3 (0.1-1.0); Monocytes % 5.5 % (1.7-9.3); Neutrophils # 7.6 K/mm3 (1.8-7.8); Neutrophils % 71.5 % (37.0-80.0); Platelet Count 260 K/mm3 (142-424); Red Blood Count 4.53 M/mm3 (4.20-5.40); Red Cell Distribution Width 14.4 % (11.5-17.5); White Blood Count 10.7 K/mm3 (4.8-10.8)
[2020-02-26 14:53] LABS: Chloride 105 mmol/L (98-107); Potassium 4.6 mmoL/L (3.5-5.1); Sodium 137 mmol/L (136-145)
[2020-02-26 14:55] LABS: Blood Urea Nitrogen 16 mg/dl (7-17); Hemoglobin A1C 5.4 % (4.0-6.0)
[2020-02-26 14:56] LABS: Alanine Aminotransferase 20 U/L (12-78); Albumin Level 4.2 g/dl (3.5-5.0); Albumin/Globulin Ratio 1.6 (1.1-1.8); Alkaline Phosphatase 95 U/L (38-126); Anion Gap 10.6 mEq/L (5-15); Aspartate Amino Transferase 28 U/L (14-36); Bilirubin,Total 0.5 mg/dl (0.2-1.3); Calcium 9.4 mg/dl (8.4-10.2); Carbon Dioxide 26 mmol/L (22.0-30.0); Estimated Glomerular Filt Rate 90 ml/min (>60); GFR (African American) 109 ML/MIN (>60); Globulin 2.7 g/dL (1.3-3.2); Glucose 100 mg/dl (74-100); Total Protein,Serum 6.9 g/dl (6.3-8.2)
[2020-02-26 15:58] LABS: Vitamin B12 696 pg/mL (239-931)
[2020-03-02 08:08] LABS: 1,25 Dihydroxy Vitamin D 75 pg/mL (.); 1,25-Dihydroxy, Vitamin D-2 12 pg/mL (.); 1,25-Dihydroxy, Vitamin D-3 63 pg/mL (.)
== END ==
PROVIDERS: Visit Provider Nurse Practitioner Psychiatric/Mental Health
DX: Z00.00 Encounter for general adult medical examination without abnormal findings (principal); Z79.899 Other long term (current) drug therapy; E67.3 Hypervitaminosis D
CPT/HCPCS: 36415; 80053; 82607; 82652; 83036; 84443; 85025

== ENCOUNTER → 2020-03-11 12:00 | Outpatient (CLI) | payer BC, SELFPAY ==
[2020-03-11 15:01] LABS: Adenovirus F 40/41, stool Not Detected (NotDetected); Astrovirus Not Detected (NotDetected); Campylobacter Not Detected (NotDetected); Cryptosporidium Not Detected (NotDetected); Cyclospora Cayetanesis Not Detected (NotDetected); Entamoeba histolytica Not Detected (NotDetected); Enteroaggregative E coli Not Detected (NotDetected); Enteropathogenic E coli Not Detected (NotDetected); Enterotoxigenic E coli Not Detected (NotDetected); Giardia lamblia Not Detected (NotDetected); Norovirus Not Detected (NotDetected); Plesimonas Shigalloides, PCR Not Detected (NotDetected); Rotavirus A Not Detected (NotDetected); Salmonella, PCR Not Detected (NotDetected); Sapovirus Not Detected (NotDetected); Shiga-like toxin E coli Not Detected (NotDetected); Shigella Enterovasive E coli Not Detected (NotDetected); Vibrio Cholerae Not Detected (NotDetected); Vibrio, PCR Not Detected (NotDetected); Yersinia Entercolitica, PCR Not Detected (NotDetected)
[2020-03-11 17:57] LABS: Clostridium Difficile A/B, PCR Detected (NotDetected)
== END ==
PROVIDERS: Visit Provider Nurse Practitioner Family
DX: R19.7 Diarrhea, unspecified (principal); A04.72 Enterocolitis due to Clostridium difficile, not specified as recurrent
CPT/HCPCS: 87507

== ENCOUNTER → 2020-04-09 17:31 | Outpatient (CLI) | payer BC, SELFPAY | PROVIDERS: Visit Provider Nurse Practitioner Family | DX: R30.9 Painful micturition, unspecified (principal) | CPT/HCPCS: 87086; 87088; 87186 ==

== ENCOUNTER 2020-04-17 15:29 | Emergency (ER) | payer BC, SELFPAY ==
[2020-04-17] VITALS (7 sets, daily range): BP systolic 113–163; BP diastolic 75–108; PULSE 79–105; RESP 16–22; TEMP 36.6–36.9; O2SAT 95–98; BMI 31.1
--- NOTE | 2020-04-17 15:26 | ECG_ITS ---
APPROVED REPORT Exam: Resting ECG HR:105 bpm ECG Measurements Heart Rate 105 AXES KS 140 P 51 QRSd 72 QRS 71 QT 364 T 57 QTc 481 Conclusion Sinus tachycardia Possible Left atrial enlargement Borderline ECG Electronically signed by : Royal Castle, 04/17/2020 18:13:16
--- NOTE | 2020-04-17 15:34 | HMH.EDGENADL ---
ED Disposition Clinical Impression: Atypical chest pain Disposition: Home, Self-Care Condition on Discharge: Good Instructions: DI for Atypical Chest Pain Additional Instructions: Protonix as prescribed. Additional instructions for CHEST PAIN: See your physician as soon as possible for further evaluation. Return immediately if worsening chest pain, vomiting, shortness of breath, fever, coughing of blood. Prescriptions: Pantoprazole Sodium [Protonix 40mg tablet] 40 mg PO DAILY #30 tab Transmission Status: Pending to [id number] Referrals: PCP,No [Non-Staff] - - Critical Care Critical Care Time: No Attestation: On 04/17/20, the high probability of a clinically significant, sudden or life threatening deterioration of the following system(s) required my full and direct attention, intervention and personal management. The time I documented below is in addition to time spent performing reported procedures but includes the following listed in this critical care notation. Medical Decision Making - José Inquiry Pt receiving controlled substance: No Vital Signs: 04/17/20 15:30 04/17/20 16:13 04/17/20 16:53 Temperature 98.4 F Temperature Source Oral Pulse Rate [Radial] 105 H 87 93 H Respiratory Rate 22 Blood Pressure [Right Arm] 163/108 H 150/94 H 134/85 Blood Pressure Mean [Right Arm] 126 112 101 Blood Pressure Source [Right Arm] Automatic Cuff Automatic Cuff Blood Pressure Position [Right Arm] Sitting Sitting Sitting 02 Sat by Pulse Oximetry 98 96 98 Oxygen Delivery Method Room Air Room Air Room Air 04/17/20 17:19 04/17/20 17:53 04/17/20 18:44 Temperature Temperature Source Pulse Rate [Radial] 93 H 85 82 Respiratory Rate 16 Blood Pressure [Right Arm] 115/79 125/85 113/75 Blood Pressure Mean [Right Arm] 91 98 87 Blood Pressure Source [Right Arm] Automatic Cuff Automatic Cuff Blood Pressure Position [Right Arm] Sitting Sitting Sitting 02 Sat by Pulse Oximetry 97 96 95 Oxygen Delivery Method Room Air Room Air Room Air - Lab Data Lab Results 04/17/20 15:30: WBC 12.1 H, RBC 4.89, Hgb 15.3, Hct 45.5, MCV 92.9, MCH 31.4 H, MCHC 33.7, RDW 14.3, Plt Count 260, MPV 7.9, Neut % (Auto) 67.5, Lymph % (Auto) 25.7, [place] % (Auto) 5.4, Eos % (Auto) 1.0, Baso % (Auto) 0.4, Neut # (Auto) 8.2 H, Lymph # (Auto) 3.1, [place] # (Auto) 0.7, Eos # (Auto) 0.1, Baso # (Auto) 0.1 04/17/20 15:30: Sodium 138, Potassium 4.1, Chloride 103, Carbon Dioxide 25, Anion Gap 14.1, BUN 15, Creatinine 0.80, Estimated Creat Clear 104, Estimated GFR 77, Est GFR ( Amer) 93, Glucose 107 H, Calcium 9.6, Total Bilirubin 0.4, Direct Bilirubin 0.1, Conjugated Bilirubin 0.0, Indirect Bilirubin 0.3, Unconjugated Bilirubin 0.4, AST 32, ALT 24, Alkaline Phosphatase 124, Troponin I < 0.01, Total Protein 7.4, Albumin 4.4, Amylase 75 04/17/20 15:30: Serum HCG, Qual Negative 04/17/20 15:30: Lipase 96 04/17/20 16:45: D-Dimer 0.55 04/17/20 18:37: Troponin I < 0.01 Result diagrams: 04/17/20 15:30 04/17/20 15:30 Orders (Tests/Meds): ED MEDICATIONS Generic Name Dose Route Start Last Admin Trade Name Freq PRN Reason Stop Dose Admin Sodium Chloride 10 ml 04/17/20 15:48 04/17/20 15:57 Sodium Chloride 0.9% 10ml Vial IV 05/17/20 15:47 10 ml NEEDED PRN Administration dilute protonix Discontinued Medications Generic Name Dose Route Start Last Admin Trade Name Freq PRN Reason Stop Dose Admin Aspirin 324 mg 04/17/20 15:39 04/17/20 15:44 Aspirin 81mg Chewable Tablet PO 04/17/20 15:40 324 mg ONCE ONE Administration Belladonna Alkaloids 60 ml 04/17/20 15:47 04/17/20 15:56 Gi Cocktail 60ml Udc PO 04/17/20 15:48 60 ml ONCE ONE Administration Pantoprazole Sodium 40 mg 04/17/20 15:48 04/17/20 15:57 Pantoprazole 40mg Vial IV 04/17/20 15:49 40 mg ONCE ONE Administration ORDERS Category Date Time Status Troponin I Q3H Lab 04/17/20 21:45 Ordered - Radi
--- NOTE | 2020-04-17 15:37 | XR_ITS ---
PROCEDURE: XR CHEST PORTABLE CLINICAL HISTORY: CHEST PAIN COMPARISON: No exams were available for comparison FINDINGS: The cardiomediastinal silhouette and pulmonary vascularity are within normal limits. Right hemidiaphragm is slightly elevated with patchy density in the right lung base medially which may be due to an area of atelectasis or infiltrate. The remaining lungs are clear. No acute bony abnormalities. IMPRESSION: Mild right basilar atelectasis or infiltrate. Dictated by: Jacek Stanford MD 04/17/2020 16:22 Jacek Stanford MD in OV 04/17/2020 16:22
[2020-04-17 15:53] LABS: Basophils # 0.1 K/mm3 (0-0.2); Basophils % 0.4 % (0.1-2.0); Eosinophils # 0.1 K/mm3 (0.0-0.4); Hematocrit 45.5 % (37.0-47.0); Hemoglobin 15.3 g/dL (12.2-16.2); Lymphocytes # 3.1 K/mm3 (0.7-4.5); Lymphocytes % 25.7 % (10-50); Mean Corpuscular HGB Conc 33.7 g/dL (31.8-35.4); Mean Corpuscular Hemoglobin 31.4 pg (27.0-31.2); Mean Corpuscular Volume 92.9 fl (81-99); Mean Platelet Volume 7.9 fl (7.4-10.4); Monocytes # 0.7 K/mm3 (0.1-1.0); Monocytes % 5.4 % (1.7-9.3); Neutrophils # 8.2 K/mm3 (1.8-7.8); Neutrophils % 67.5 % (37.0-80.0); Platelet Count 260 K/mm3 (142-424); Red Blood Count 4.89 M/mm3 (4.20-5.40); Red Cell Distribution Width 14.3 % (11.5-17.5); White Blood Count 12.1 K/mm3 (4.8-10.8)
[2020-04-17 16:04] LABS: Alanine Aminotransferase 24 U/L (12-78); Albumin Level 4.4 g/dl (3.5-5.0); Alkaline Phosphatase 124 U/L (38-126); Amylase 75 U/L (30-110); Anion Gap 14.1 mEq/L (5-15); Aspartate Amino Transferase 32 U/L (14-36); Bilirubin,Direct 0.1 mg/dl (0.0-0.4); Bilirubin,Indirect 0.3 mg/dL (0.0-0.9); Bilirubin,Total 0.4 mg/dl (0.2-1.3); Bilirubin,Unconjugated 0.4 mg/dL (0.0-1.1); Blood Urea Nitrogen 15 mg/dl (7-17); Calcium 9.6 mg/dl (8.4-10.2); Carbon Dioxide 25 mmol/L (22.0-30.0); Chloride 103 mmol/L (98-107); Creatinine Clearance Estimated 104 mL/min (50-200); Estimated Glomerular Filt Rate 77 ml/min (>60); GFR (African American) 93 ML/MIN (>60); Glucose 107 mg/dl (74-100); Lipase 96 U/L (23-300); Potassium 4.1 mmoL/L (3.5-5.1); Sodium 138 mmol/L (136-145); Total Protein,Serum 7.4 g/dl (6.3-8.2)
[2020-04-17 16:16] LABS: HCG Qualitative, Serum Negative (Negative); Troponin I < 0.01 ng/ml (0.00-0.034)
[2020-04-17 17:04] LABS: D-Dimer 0.55 ug/mL (0.15-8.0)
--- NOTE | 2020-04-17 18:49 | PC.NURSE ---
pt and family updated on plan of care
[2020-04-17 19:16] LABS: Troponin I < 0.01 ng/ml (0.00-0.034)
== END 2020-04-17 20:08 | disposition home or self-care (01) ==
PROVIDERS: Emergency Provider Emergency Medicine; PCP Nurse Practitioner Family
DX: R07.89 Other chest pain (principal); R12 Heartburn; F41.8 Other specified anxiety disorders; F17.210 Nicotine dependence, cigarettes, uncomplicated; Z82.49 Family history of ischemic heart disease and other diseases of the circulatory system
CPT/HCPCS: 71045; 80048; 80076; 82150; 83690; 84484; 84703; 85025; 85378; 93005; 93041; 96374; 99283

== ENCOUNTER → 2020-05-05 13:56 | Outpatient (CLI) | payer BC, SELFPAY | PROVIDERS: Visit Provider Nurse Practitioner Family | DX: M54.9 Dorsalgia, unspecified (principal); R30.0 Dysuria | CPT/HCPCS: 87086; 87088; 87186 ==

== ENCOUNTER → 2020-09-02 11:52 | Outpatient (CLI) | payer BC, SELFPAY ==
[2020-09-02 11:57] LABS: Adenovirus F 40/41, stool Not Detected (NotDetected); Astrovirus Not Detected (NotDetected); Campylobacter Not Detected (NotDetected); Cryptosporidium Not Detected (NotDetected); Cyclospora Cayetanesis Not Detected (NotDetected); Entamoeba histolytica Not Detected (NotDetected); Enteroaggregative E coli Not Detected (NotDetected); Enteropathogenic E coli Not Detected (NotDetected); Enterotoxigenic E coli Not Detected (NotDetected); Giardia lamblia Not Detected (NotDetected); Norovirus Not Detected (NotDetected); Plesimonas Shigalloides, PCR Not Detected (NotDetected); Rotavirus A Not Detected (NotDetected); Salmonella, PCR Not Detected (NotDetected); Sapovirus Not Detected (NotDetected); Shiga-like toxin E coli Not Detected (NotDetected); Shigella Enterovasive E coli Not Detected (NotDetected); Vibrio Cholerae Not Detected (NotDetected); Vibrio, PCR Not Detected (NotDetected); Yersinia Entercolitica, PCR Not Detected (NotDetected)
[2020-09-02 15:29] LABS: Clostridium Difficile A/B, PCR Detected (NotDetected)
== END ==
PROVIDERS: Visit Provider Nurse Practitioner Family
DX: R19.7 Diarrhea, unspecified (principal); A04.72 Enterocolitis due to Clostridium difficile, not specified as recurrent
CPT/HCPCS: 87507

== ENCOUNTER → 2020-10-13 18:13 | Outpatient (CLI) | payer BC, SELFPAY | PROVIDERS: Visit Provider Nurse Practitioner Family | DX: N39.0 Urinary tract infection, site not specified (principal) | CPT/HCPCS: 87086; 87088; 87186 ==

== ENCOUNTER → 2020-11-03 14:34 | Outpatient (CLI) | payer BC, SELFPAY ==
[2020-11-03 16:02] LABS: Microscopic, Urine URINE MICROSCOPIC (MICROSCOPIC)
[2020-11-03 16:07] LABS: Appearance,Urine CLEAR (Clear); Bilirubin,Urine Negative (Negative); Blood, Urine TRACE-I (Negative); Color,Urine YELLOW (Yellow); Glucose,Urine (UA) Negative (Negative); Ketones,Urine Negative (Negative); Leukocyte Esterase,Urine Negative (Negative); Nitrate,Urine Negative (Negative); Protein,Urine Negative (Negative); Specific Gravity, Urine 1.015 (1.005-1.030); Urobilinogen,Urine 0.2 EU/dl (0.2)
[2020-11-03 16:31] LABS: Bacteria,Urine 2+ /lpf; Squamous Epithelial Cell,Urine 20-50 #/hpf (0-5)
== END ==
PROVIDERS: Visit Provider Nurse Practitioner Family
DX: N39.0 Urinary tract infection, site not specified (principal)
CPT/HCPCS: 81001; 87086; 87088; 87186

== ENCOUNTER → 2021-09-24 11:19 | Outpatient (CLI) | payer BC, SELFPAY ==
[2021-09-24 11:57] LABS: Basophils # 0.1 K/mm3 (0-0.2); Basophils % 0.6 % (0.1-2.0); Eosinophils # 0.1 K/mm3 (0.0-0.4); Eosinophils % 0.6 % (0.1-12.0); Hematocrit 44.7 % (37.0-47.0); Hemoglobin 14.5 g/dL (12.2-16.2); Lymphocytes # 2.1 K/mm3 (0.7-4.5); Lymphocytes % 20.9 % (10-50); Mean Corpuscular HGB Conc 32.6 g/dL (31.8-35.4); Mean Corpuscular Hemoglobin 30.7 pg (27.0-31.2); Mean Corpuscular Volume 94.3 fl (81-99); Mean Platelet Volume 9.1 fl (7.4-10.4); Monocytes # 0.5 K/mm3 (0.1-1.0); Monocytes % 4.8 % (1.7-9.3); Neutrophils # 7.3 K/mm3 (1.8-7.8); Neutrophils % 73.1 % (37.0-80.0); Platelet Count 231 K/mm3 (142-424); Red Blood Count 4.74 M/mm3 (4.20-5.40); Red Cell Distribution Width 14.8 % (11.5-17.5)
[2021-09-24 12:29] LABS: Alanine Aminotransferase 28 U/L (12-78); Albumin Level 4.4 g/dl (3.5-5.0); Alkaline Phosphatase 106 U/L (38-126); Anion Gap 10.3 mEq/L (5-15); Aspartate Amino Transferase 31 U/L (14-36); Bilirubin,Direct 0.2 mg/dl (0.0-0.4); Bilirubin,Indirect 0.3 mg/dL (0.0-0.9); Bilirubin,Total 0.5 mg/dl (0.2-1.3); Bilirubin,Unconjugated 0.3 mg/dL (0.0-1.1); Blood Urea Nitrogen 15 mg/dl (7-17); Calcium 9.6 mg/dl (8.4-10.2); Carbon Dioxide 27 mmol/L (22.0-30.0); Chloride 102 mmol/L (98-107); Chol/HDL Ratio 2.3 (1-3.5); Cholesterol 188 mg/dl (140-200); Estimated Glomerular Filt Rate 107 ml/min (>60); GFR (African American) 130 ML/MIN (>60); Glucose 103 mg/dl (74-100); HDL Cholesterol 83 mg/dl (40-60); Magnesium 1.6 mg/dl (1.6-2.3); Potassium 4.3 mmoL/L (3.5-5.1); Sodium 135 mmol/L (136-145); Total Protein,Serum 6.8 g/dl (6.3-8.2); Triglycerides 91 mg/dl (30-150); VLDL Cholesterol 18 mg/dL (0-40)
[2021-09-24 12:40] LABS: Direct LDL Cholesterol 83.38 mg/dL (100-129)
[2021-09-24 12:44] LABS: Free T4 (Free Thyroxine) 1.22 ng/dl (0.78-2.19)
[2021-09-24 12:59] LABS: Thyroid Stimulating Hormone 0.43 uIU/mL (0.465-4.68)
== END ==
PROVIDERS: Visit Provider Internal Medicine Cardiovascular Disease
DX: R06.00 Dyspnea, unspecified (principal); R07.9 Chest pain, unspecified; R00.0 Tachycardia, unspecified; I10 Essential (primary) hypertension; K21.9 Gastro-esophageal reflux disease without esophagitis; Z72.0 Tobacco use
CPT/HCPCS: 36415; 80048; 80061; 80076; 83735; 84439; 84443; 85025

== ENCOUNTER → 2021-09-30 11:39 | Outpatient (CLI) | payer BC, SELFPAY ==
--- NOTE | 2021-09-30 | CA_ITS ---
APPROVED REPORT Exam: Exercise Treadmill Technologist: Nesha Kruse, Ht: 5 ft 0 in Wt: 187 lbs BSA: 1.81 m2 HR: 80 bpm BP: 118/84 mmHg Rhythm: NSR, LVH Indications: CP Medical History Medical History: HTN Medications: Lisinopril,,,,, HCTZ,,,,, Nexium,,,,, BisOPROLOL,,,,, PEPcid,,,,, Cardiac Risk Factors: HTN, FHX of CAD, Smoking Stress Test Details Test: Shasha HR Resting HR: 93 bpm Max Heart Rate (APMHR): 173.847668 bpm Max HR Achieved: 154 bpm Target HR (85% APMHR): 147.556717 bpm % of APMHR: 89.02 Recovery HR: 132 bpm BP Resting BP: 121/82 mmHg Max BP: 190/84 mmHg Recovery BP: 156.0/91.0 mmHg ECG Resting ECG: NSR, LVH Clinical Exercise duration: 06:46 min Highest Stage Achieved: Exercise capacity: 7.0 METs Stress ECG Conclusion Pt exercised total of 6:46 into stage 3 of shasha protocol. Pt experinced SOA. No CP noted. Within normal ST response to exercise. Normal GXT. Myoview images reported separately. Test Summary REST . . . . . . . Sitting REST . . . . . . . Standing REST 04:25 0.0 0.0 93 . 121/ 82 . . Stage 1 01:00 10.0 1.7 111 . . . . Stage 1 02:00 10.0 1.7 118 . . . . Stage 1 03:00 10.0 1.7 121 . 178/ 90 . . Stage 2 01:00 12.0 2.5 128 . . . . Stage 2 02:00 12.0 2.5 135 . . . . Stage 2 . . . . . . . Myoview Injected Stage 2 03:00 12.0 2.5 142 . 190/ 84 . . Stage 3 00:46 14.0 3.4 154 . . . Stop exercise at 06:46 RECOVERY 01:00 0.0 0.0 128 . . . . RECOVERY 02:00 0.0 0.0 113 . 156/ 91 . . RECOVERY 03:00 0.0 0.0 104 . 147/ 84 . . RECOVERY 04:00 0.0 0.0 100 . 147/ 84 . . RECOVERY 05:00 0.0 0.0 94 . 116/ 79 . . RECOVERY 05:36 0.0 0.0 100 . 116/ 79 . . Electronically signed by : Gary Calderon MD 10/01/2021 08:58:39
--- NOTE | 2021-09-30 11:39 | NM_ITS ---
APPROVED REPORT Exam: Nuclear Stress Test Indication: chest pain..short of breath..palpitations Patient Location: Outpatient Stress Tech: Nesha PAULA Tech:RICHARD Bill RT(R)(N) Ht: 5 ft 3 in Wt: 185 lbs Bra Size: c HR: 80 bpm BP: 118/84 mmHg BSA: 1.87 m2 BMI: 32.7 History: chest pain..short of breath..palpitations Procedure: Patient exercised on [place] protocol 6:46 minutes and sec, resting heart rate 80 bpm, resting blood pressure 118/84 mmHg, with exercise maximum heart rate achived was 154 bpm which is 89 % of the maximum predicted heart rate and blood pressure was 190/84 mmHg. Test was stopped due to soa. Patient denied any complaint of chest pain. Patient has Adequate exercise capacity, achieved 7.0 METs of workload on treadmill, the blood pressure response to exercise was Adequate. Electrocardiogram Resting electrocardiogram shows sinus rhythm, with exercise there is less than 1.[address] segment depression noted from the baseline EKG. The EKG portion of the exercise Myoview is negative for ischemia. Cardiac Stress and Resting SPECT Images: Cardiac Stress and Resting SPECT images were obtained using technetium 99m Myoview 32.7 mCi stress and 11.0 mCi at rest. Gated SPECT for analysis of segmental wall motion and calculation of the ejection fraction also done. Prone images were also obtained. Cardiac stress and resting SPECT images show uniform myocardial activity without segmental perfusion abnormality, computer derived ejection fraction is 51% with no regional wall motion abnormality, right ventricle is normal size and contractility. Conclusion: 1. The EKG portion of the exercise Myoview is negative for ischemia, patient has adequate exercise capacity achieved 7 METS of workload on treadmill, the blood pressure response to exercise was adequate, there was no exercise-induced chest discomfort. 2. No scintigraphic evidence of reversible ischemia seen, computer derived ejection fraction 51% with no regional wall motion abnormality, right ventricle is normal size and contractility. 3. Normal exercise Myoview study. Electronically signed by : Gary Calderon MD 10/01/2021 09:00:55
--- NOTE | 2021-09-30 12:44 | CA_ITS ---
APPROVED REPORT EXAM: Comprehensive 2D, Doppler, and color-flow Echocardiogram Food Service Order Clerk: Carleen Cain CRT Ht: 5 ft 0 in Wt: 187lbs BSA: 1.81 BP: 139/98 mmHg Indications: Chest Pain, Shortness of Breath, Hypertension/HDD, smoker, tachycardia, GERD 2D Dimensions LVOT 1.97 cm (M/F) 1.5-2.5 LA Volume 24.30 mL LA Volume Index 13.40 mL/m2 (M/F) 16-34 M-Mode Dimensions RVDd 3.36 cm (0.9-2.6) LA Diam 2.53 cm (1.9-4.0) LVDd 4.43 cm (3.5-5.7) Ao Diam 3.64 cm (2.0-3.7) LVDs 2.90 cm (3.5-5.7) IVSd 1.04 cm (0.6-1.1) PWd 0.72 cm (0.6-1.1) EF (Teich) 63.90% FS 34.50% EDV (Teich) 89.10 mL TAPSE 1.87 (<1.7) ESV (Teich) 32.20 mL LV Diastology E Decel Time 233.00 (160-240 msec) E/A Ratio 0.83 MED E' 9.50 (< 7 cm/sec) MED A' 8.90 cm/s E'/MED E' Ratio 6.04 (>14) LAT E' 12.10 (<10 cm/sec) LAT A' 9.50 cm/s E/LAT E' Ratio 4.74 (>14) Aortic Valve AO Peak GR. 6.10 mmHg Mitral Valve MV E Max Sandro. 57.00 (40-130 cm/s) MV A Velocity 69.00 (40-130 cm/s) E/A Ratio 0.83 MV Decel. Time 233.00 (160-240 ms) MV PHT 68.00 ms Pulmonary Valve PV Peak Velocity 118.00 (50-150 cm/s) Tricuspid Valve TR P. Velocity 186.00 cm/s RAP Estimate 10.00 mmHg RVSP 23.90 mmHg Left Ventricle Left atrium is mildly enlarged, left ventricle normal size, mild concentric left ventricular hypertrophy, estimated ejection fraction 55% with no regional wall motion abnormality, Doppler evidence of impaired LV relaxation seen. Tissue Doppler is not indicated raise left atrial pressure. Right Ventricle Right atrium and right ventricle are normal size and contractility. Aortic Valve Aortic valve is minimally thickened and fibrosed there is no aortic stenosis or aortic insufficiency. Mitral Valve Mitral valve grossly normal, there is trace mitral regurgitation. Tricuspid Valve Tricuspid grossly normal, there is trace tricuspid regurgitation, tricuspid regurgitation jet velocity is inadequate for calculation of the right ventricular systolic pressure. Pulmonic Valve Pulmonic valve is poorly visualized. Great Vessels Aortic root is normal size. Inferior vena cava is normal size with normal inspiratory collapse. Pericardium No significant pericardial effusion noted. Conclusion 1. Mildly enlarged atrium, normal left ventricular size, mild concentric left ventricular hypertrophy, estimated ejection fraction 55% with no regional wall motion abnormality, Doppler evidence of impaired LV relaxation seen. 2. Trace mitral and tricuspid regurgitation. 3. No significant pericardial effusion noted. 4. Inferior vena cava is normal size with normal respiratory collapse. Electronically signed by : Gary Calderon MD 10/01/2021 11:37:07
== END ==
PROVIDERS: PCP Nurse Practitioner Family; Visit Provider Internal Medicine Cardiovascular Disease
DX: R06.00 Dyspnea, unspecified (principal); R07.9 Chest pain, unspecified; R06.02 Shortness of breath; R00.0 Tachycardia, unspecified; I10 Essential (primary) hypertension; K21.9 Gastro-esophageal reflux disease without esophagitis; Z72.0 Tobacco use
CPT/HCPCS: 78452; 93017; 93306; A9502

== ENCOUNTER 2021-11-24 14:27 | Emergency (ER) | payer BC, SELFPAY ==
[2021-11-24] VITALS (8 sets, daily range): BP systolic 112–178; BP diastolic 65–104; PULSE 73–104; RESP 16–18; TEMP 36.8–37.1; O2SAT 97–99; BMI 37.0
--- NOTE | 2021-11-24 14:30 | PC.NURSE ---
pt ambulatory to restroom from waiting room without complications
--- NOTE | 2021-11-24 14:38 | PC.NURSE ---
pt ambulatory from restroom to ED room 9 without complications. CODIE Truong at traiging patient. Warm blanket given, hooked to monitor.
[2021-11-24 14:40] LABS: Microscopic, Urine URINE MICROSCOPIC (MICROSCOPIC)
[2021-11-24 14:46] LABS: Appearance,Urine SL CLOUDY (Clear); Bilirubin,Urine Negative (Negative); Blood, Urine 1+ (Negative); Color,Urine YELLOW (Yellow); Glucose,Urine (UA) Negative (Negative); Ketones,Urine Negative (Negative); Leukocyte Esterase,Urine Negative (Negative); Nitrate,Urine Negative (Negative); Protein,Urine Negative (Negative); Specific Gravity, Urine 1.025 (1.005-1.030); Urobilinogen,Urine 0.2 EU/dl (0.2)
--- NOTE | 2021-11-24 14:50 | PC.NURSE ---
ZEN PITT at speaking with patient
--- NOTE | 2021-11-24 14:51 | HMH.EDGENADL ---
ED Disposition Clinical Impression: Epiploic appendagitis Disposition: Home, Self-Care Condition on Discharge: Good Instructions: DI for Acute Abdominal Pain Additional Instructions: Ibuprofen as prescribed for pain. Zofran as needed for nausea. Follow-up with primary care provider within 1 week for recheck. Additional instructions for ABDOMINAL PAIN: See your physician as soon as possible for further evaluation. Return immediately if worsening abdominal pain, vomiting, shortness of breath, fever, vomiting of blood or abdominal distention. Prescriptions: Ibuprofen [Ibuprofen 800mg Tablet] 800 mg PO Q8HP PRN #15 tab PRN Reason: Moderate Pain Transmission Status: Pending to [facility] Ondansetron [Zofran 4mg ODT] 4 mg PO TIDP PRN #10 tab PRN Reason: Nausea And Vomiting Transmission Status: Pending to [facility] Referrals: Roberto Olivarez APRN [Primary Care Provider] - - Critical Care Critical Care Time: No Attestation: On 11/24/21, the high probability of a clinically significant, sudden or life threatening deterioration of the following system(s) required my full and direct attention, intervention and personal management. The time I documented below is in addition to time spent performing reported procedures but includes the following listed in this critical care notation. Medical Decision Making - José Inquiry Pt receiving controlled substance: No Vital Signs: 11/24/21 14:28 11/24/21 14:57 11/24/21 15:00 Temperature 98.7 F Temperature Source Oral Pulse Rate 84 88 Pulse Rate [Radial] 104 H Respiratory Rate 16 18 18 Blood Pressure 161/96 H 147/83 H Blood Pressure [Right Arm] 178/104 H Blood Pressure Mean 121 117 Blood Pressure Mean [Right Arm] 128 Blood Pressure Position [Right Arm] Sitting 02 Sat by Pulse Oximetry 98 98 98 Oxygen Delivery Method Room Air 11/24/21 15:30 11/24/21 16:00 11/24/21 16:30 Temperature Temperature Source Pulse Rate 88 80 79 Pulse Rate [Radial] Respiratory Rate 18 Blood Pressure 149/75 H 127/70 123/71 Blood Pressure [Right Arm] Blood Pressure Mean 114 105 99 Blood Pressure Mean [Right Arm] Blood Pressure Position [Right Arm] 02 Sat by Pulse Oximetry 99 98 97 Oxygen Delivery Method 11/24/21 17:01 Temperature Temperature Source Pulse Rate 73 Pulse Rate [Radial] Respiratory Rate Blood Pressure 112/65 Blood Pressure [Right Arm] Blood Pressure Mean 80 Blood Pressure Mean [Right Arm] Blood Pressure Position [Right Arm] 02 Sat by Pulse Oximetry 98 Oxygen Delivery Method - Lab Data Lab Results 11/24/21 14:36: Urine Color Yellow, Urine Appearance Sl cloudy, Urine pH 6.0, Ur Specific [place] 1.025, Urine Protein Negative, Urine Glucose (UA) Negative, Urine Ketones Negative, Urine Blood 1+, Urine Nitrate Negative, Urine Bilirubin Negative, Urine Urobilinogen 0.2, Ur Leukocyte Esterase Negative, Urine RBC 3-5, Urine WBC None, Ur Squamous Epith Cells 5-10, Urine Bacteria 2+ 11/24/21 14:36: Urine HCG, Qual Negative 11/24/21 14:45: WBC 14.4 H, RBC 4.67, Hgb 15.2, Hct 43.3, MCV 92.8, MCH 32.5 H, MCHC 35.0, RDW 15.6, Plt Count 343, MPV 8.7, Neut % (Auto) 71.0, Lymph % (Auto) 20.9, [place] % (Auto) 4.6, Eos % (Auto) 0.8, Baso % (Auto) 2.7 H, Neut # (Auto) 10.2 H, Lymph # (Auto) 3.0, [place] # (Auto) 0.7, Eos # (Auto) 0.1, Baso # (Auto) 0.4 H 11/24/21 14:45: Sodium 138, Potassium 3.9, Chloride 104, Carbon Dioxide 23, Anion Gap 14.9, BUN 10, Creatinine 0.60, Estimated Creat Clear 158, Estimated GFR 107, Est GFR ( Amer) 130, Glucose 136 H, Calcium 9.7, Total Bilirubin 0.7, AST 55 H, ALT 41, Alkaline Phosphatase 140 H, Total Protein 8.4 H, Albumin 4.9, Globulin 3.5 H, Albumin/Globulin Ratio 1.4, Lipase 84 Result diagrams: 11/24/21 14:45 11/24/21 14:45 Orders (Tests/Meds): ED MEDICATIONS Discontinued Medications Generic Name Dose Route Start Last Admin Trade Name Fremark PRN
--- NOTE | 2021-11-24 15:03 | CT_ITS ---
FINAL REPORT CLINICAL HISTORY: hematuria, abdo pain, and pt states she has been experiencing frequent diarrhea for over a month. FINDINGS: Axial CT images of the abdomen and pelvis were obtained without intravenous contrast. Coronal reformatted images were also obtained.This study was performed with techniques to keep radiation doses as low as reasonably achievable (ALARA). Individualized dose reduction techniques using automated exposure control or adjustment of mA and/or kV according to the patient's size were employed. Abdomen: There is mild bibasilar scarring. There is a single less than 3 mm nonobstructing left renal stone. There is no hydronephrosis. The gallbladder is surgically absent. The liver, spleen and pancreas have an unremarkable, unenhanced appearance. No mass or adenopathy is seen. No inflammatory process is identified. Pelvis: Images of the pelvis reveal no evidence of ureteral dilation or ureteral stone.No mass or abnormal fluid collection is identified. The appendix is surgically absent. There are 2 foci of fat along the anterior aspect of sigmoid colon with adjacent fat stranding. The appearance is consistent with epiploic appendagitis. IMPRESSION: Single less than 3 mm nonobstructing left renal stone. Two foci of fat along the anterior aspect of the sigmoid colon with adjacent fat stranding, appearances consistent with epiploic appendagitis. Reviewed, Interpreted and Dictated by Albin Zapien III, MD Transcribed by Cynthia Katz Authenticated and [facility]
[2021-11-24 15:05] LABS: Adenovirus F 40/41, stool Not Detected (NotDetected); Astrovirus Not Detected (NotDetected); Campylobacter Not Detected (NotDetected); Clostridium Difficile A/B, PCR Not Detected (NotDetected); Cryptosporidium Not Detected (NotDetected); Cyclospora Cayetanesis Not Detected (NotDetected); Entamoeba histolytica Not Detected (NotDetected); Enteroaggregative E coli Not Detected (NotDetected); Enteropathogenic E coli Not Detected (NotDetected); Enterotoxigenic E coli Not Detected (NotDetected); Giardia lamblia Not Detected (NotDetected); Norovirus Not Detected (NotDetected); Plesimonas Shigalloides, PCR Not Detected (NotDetected); Rotavirus A Not Detected (NotDetected); Salmonella, PCR Not Detected (NotDetected); Sapovirus Not Detected (NotDetected); Shiga-like toxin E coli Not Detected (NotDetected); Shigella Enterovasive E coli Not Detected (NotDetected); Vibrio Cholerae Not Detected (NotDetected); Vibrio, PCR Not Detected (NotDetected); Yersinia Entercolitica, PCR Not Detected (NotDetected)
[2021-11-24 15:07] LABS: Bacteria,Urine 2+ /lpf; Urine Pregnancy, HCG Qual. Negative (Negative)
[2021-11-24 15:15] LABS: Chloride 104 mmol/L (98-107); Sodium 138 mmol/L (136-145)
[2021-11-24 15:16] LABS: Potassium 3.9 mmoL/L (3.5-5.1)
[2021-11-24 15:18] LABS: Alanine Aminotransferase 41 U/L (12-78); Albumin Level 4.9 g/dl (3.5-5.0); Albumin/Globulin Ratio 1.4 (1.1-1.8); Alkaline Phosphatase 140 U/L (38-126); Anion Gap 14.9 mEq/L (5-15); Aspartate Amino Transferase 55 U/L (14-36); Basophils # 0.4 K/mm3 (0-0.2); Basophils % 2.7 % (0.1-2.0); Bilirubin,Total 0.7 mg/dl (0.2-1.3); Blood Urea Nitrogen 10 mg/dl (7-17); Calcium 9.7 mg/dl (8.4-10.2); Carbon Dioxide 23 mmol/L (22.0-30.0); Creatinine Clearance Estimated 158 mL/min (50-200); Eosinophils # 0.1 K/mm3 (0.0-0.4); Eosinophils % 0.8 % (0.1-12.0); Estimated Glomerular Filt Rate 107 ml/min (>60); GFR (African American) 130 ML/MIN (>60); Globulin 3.5 g/dL (1.3-3.2); Glucose 136 mg/dl (74-100); Hematocrit 43.3 % (37.0-47.0); Hemoglobin 15.2 g/dL (12.2-16.2); Lipase 84 U/L (23-300); Lymphocytes % 20.9 % (10-50); Mean Corpuscular Hemoglobin 32.5 pg (27.0-31.2); Mean Corpuscular Volume 92.8 fl (81-99); Mean Platelet Volume 8.7 fl (7.4-10.4); Monocytes # 0.7 K/mm3 (0.1-1.0); Monocytes % 4.6 % (1.7-9.3); Neutrophils # 10.2 K/mm3 (1.8-7.8); Platelet Count 343 K/mm3 (142-424); Red Blood Count 4.67 M/mm3 (4.20-5.40); Red Cell Distribution Width 15.6 % (11.5-17.5); Total Protein,Serum 8.4 g/dl (6.3-8.2); White Blood Count 14.4 K/mm3 (4.8-10.8)
--- NOTE | 2021-11-24 17:40 | PC.NURSE ---
CODIE Troung going over discharge instructions with patient at BS
== END 2021-11-24 18:55 | disposition home or self-care (01) ==
PROVIDERS: Emergency Provider Emergency Medicine; PCP Nurse Practitioner Family
DX: K63.89 Other specified diseases of intestine (principal); R10.9 Unspecified abdominal pain; N20.0 Calculus of kidney
CPT/HCPCS: 74176; 80053; 81001; 81025; 83690; 85025; 87086; 87506; 96361; 96374; 96375; 99284; J2405

== ENCOUNTER 2022-01-04 14:46 | Emergency (ER) | payer BC, SELFPAY ==
[2022-01-04 15:28] VITALS: BP 147/101; PULSE 89; RESP 16; TEMP 36.9; O2SAT 96; BMI 35.2
[2022-01-04 15:35] LABS: UTC Strep Screen (Rapid) Negative (Negative)
--- NOTE | 2022-01-04 15:54 | HMH.EDUTC ---
[facility] [place] Clinical Impression: Viral syndrome, Pharyngitis Disposition: Home, Self-Care Condition on Discharge: Good Instructions: DI for COVID-19 (Suspected or Confirmed ), Preventing the Spread of Coronavirus Discharge Instructions Additional Instructions: Drink plenty of fluids. Take tylenol or ibuprofen for pain or fever. Take the medications as directed. Follow up with your regular doctor. GO TO THE ER FOR ANY WORSENING SYMPTOMS Quarantine until you know the results of your covid-19 test. Notify your school or workplace of your results and follow their instructions regarding return to work/school. Prescriptions: Brompheniramine/Pseudoephed/Dm [Bromfed Dm Cough Syrup] 5 ml PO Q6HP PRN #240 ml PRN Reason: Cough Transmission Status: Received by [id number] methylPREDNISolone [Medrol] 4 mg PO DIRECTED 6 Days #21 packet Transmission Status: Received by [id number] Azithromycin [Z-Bartolo 250mg Tab*] 250 mg PO UD DOSE PK #6 tab Transmission Status: Received by [id number] Referrals: Roberto Olivarez APRN [Primary Care Provider] - Time of Disposition: 15:55 Medical Decision Making - Medical Records Medical records reviewed: No: I reviewed the patient's medical records. - José Inquiry Pt receiving controlled substance: No Vital Signs: 01/04/22 15:28 01/04/22 16:01 Temperature 98.5 F 98.5 F Temperature Source Oral Pulse Rate 89 Pulse Rate [Left] 89 Respiratory Rate 16 16 Blood Pressure 147/101 H Blood Pressure [Right Arm] 147/101 H Blood Pressure Mean [Right Arm] 116 02 Sat by Pulse Oximetry 96 - Lab Data Lab Results 01/04/22 15:22: Strep Scn Rapid Clinic Negative Orders (Tests/Meds): ORDERS Category Date Time Status Covid-19 Nasal PCR ([facility]) Routine Lab 01/04/22 15:11 Received Strep Screen Confirmation Stat Micro 01/04/22 15:22 Received [facility] [place] HPI - General Stated complaint: covid test Time Seen by Provider: 01/04/22 15:30 Mode of Arrival: Ambulatory Source of Information: Patient Limitations: No Limitations Description of Symptoms (Recalled from Triage Doc. by RN): patient comes in for covid test. symptoms include sore throat, fever, body aches, cough, headache. symptoms began 1 week ago. HEENT Symptoms (Recalled from RN notes): Yes Resp Symptoms (Recalled from RN notes): Yes Skin Symptoms (Recalled from RN notes): No MS Symptoms (Recalled from RN notes): No Functional Status (Recalled from RN notes): n/a - History of Present Illness Provider Complaint: She states that she is here for covid test. Her symptoms began 1 week ago. - Related Data Previous Rx's Medication Instructions Recorded esomeprazole magnesium 40 mg 40 mg PO DAILY #30 cap 09/24/21 capsule,delayed release famotidine 20 mg tablet 20 mg PO DAILY #30 tab 09/24/21 Ondansetron [Zofran 4mg ODT] 4 mg PO TIDP PRN #10 tab 11/24/21 bisoprolol fumarate 5 mg tablet 5 mg PO QDAY #30 tab 11/26/21 hydrochlorothiazide 12.5 mg tablet 12.5 mg PO DAILY #30 tab 11/26/21 lisinopril 10 mg tablet 10 mg PO DAILY #30 tab 11/26/21 bupropion HCl 150 mg 24 hr tablet, 150 mg PO DAILY #30 tab 12/03/21 extended release Azithromycin [Z-Bartolo 250mg Tab*] 250 mg PO UD DOSE PK #6 tab 01/04/22 Brompheniramine/Pseudoephed/Dm 5 ml PO Q6HP PRN #240 ml 01/04/22 [Bromfed Dm Cough Syrup] methylPREDNISolone [Medrol] 4 mg PO DIRECTED 6 Days #21 01/04/22 packet Allergies Allergy/AdvReac Type Severity Reaction Status Date / Time No Known Allergies Allergy Verified 01/04/22 15:31 - Worker's Comp Is this a Worker's Comp case?: No [facility] History - Hepatitis A Screen Attestation statement:: This patient has been screened for Hepatitis A risk factors. I have reviewed the patient's past medical history: Yes Medical History: Reports:: Anxiety, Depression Denies:: Cancer, Diabetes Mellitus Type 1, Diabetes Mellitus Type 2, Hyperlipidemia, Hypertension, Inte
[2022-01-04 16:01] VITALS: BP 147/101; PULSE 89; RESP 16; TEMP 36.9
== END 2022-01-04 16:12 | disposition home or self-care (01) ==
PROVIDERS: Emergency Provider Nurse Practitioner Family; PCP Nurse Practitioner Family
DX: U07.1 COVID-19 (principal); B34.9 Viral infection, unspecified; J02.9 Acute pharyngitis, unspecified; R51.9 Headache, unspecified; M79.10 Myalgia, unspecified site; F32.A Depression, unspecified; F41.9 Anxiety disorder, unspecified; F17.210 Nicotine dependence, cigarettes, uncomplicated; Z79.52 Long term (current) use of systemic steroids; Z82.49 Family history of ischemic heart disease and other diseases of the circulatory system; Z83.3 Family history of diabetes mellitus; Z80.9 Family history of malignant neoplasm, unspecified
CPT/HCPCS: 87880; 99213; C9803; G0463; U0003; U0005

== ENCOUNTER 2022-09-05 17:10 | Emergency (ER) | payer BC, SELFPAY ==
[2022-09-05 18:00] VITALS: BP 141/96; PULSE 99; RESP 18; TEMP 36.7; O2SAT 97; BMI 35.2
--- NOTE | 2022-09-05 18:12 | EXP.UTC ---
Discharge Plan Disposition Patient Disposition: Home, Self-Care Condition: Good Prescriptions Prescriptions: New azithromycin [Zithromax Z-Bartolo] 250 mg tablet See Rx Instructions .ROUTE .COMPLEX 5 Days Qty: 6 0RF Rx Instructions: For 250 mg dose pack: take 500 mg today (day 1), then 250 mg for 4 days (days 2-5) benzonatate 100 mg capsule 100 mg PO TID PRN (Reason: cough) Qty: 30 0RF methylprednisolone [Medrol (Bartolo)] 4 mg tablets,dose pack See Rx Instructions .Route .COMPLEX 6 Days Qty: 21 0RF Rx Instructions: taper pack; No Action bisoprolol fumarate 5 mg tablet 5 mg PO QDAY lisinopril 10 mg tablet 10 mg PO DAILY hydrochlorothiazide 12.5 mg tablet 12.5 mg PO DAILY Referrals Follow up/Referrals: Roberto Olivarez APRN [Primary Care Provider] - See instructions Activity Restrictions/Add. Instructions Additional Instructions/Restrictions: *Monitor Temp, Over the counter Motrin or Tylenol as directed/as needed Tylenol every 4 hours and Motrin every 6 hours (as long as your family doctor has told you that you can take it) for fever or pain. and straight to ER if unable to lower temp less than 101.0 after medication given *Warm salt water gargles may help to soothe the throat *Throat Lozenges? *Warm fluids like tea with honey may help to soothe the throat? *Sleep elevated *Humidifier/Vaporizer Follow up IMMEDIATELY for new or worsening symptoms or no Noticeable improvement over the next 48-72 hours. 911 for difficulty breathing or swallowing You were tested for today for COVID19 your test result should be back in the next 24-48 hours, you may check your results on the [facility] My Health Portal Clinical Impressions Clinical Impression: Sinusitis, Bronchitis Stand Alone Forms Stand Alone Forms: Work/School Release Instructions Patient Instructions: DI for Sinusitis, Sinusitis, Acute Bronchitis Discharge ED Provider: Delicia Steele [facility] [place] HPI General Stated complaint: Cough,congestion,fever Time Seen by Provider: 09/05/22 18:12 History of Present Illness Provider Complaint: Patient states that has been having sinus congestion and pressure, drainage in the back of her throat, felt like she may have had a little fever, cough, and feels like it is trying to move into her chest States that she has been feeling achy and having some chills but her cough was worse today Related Data Home Medications Medication Instructions Recorded Confirmed bisoprolol fumarate 5 mg tablet 5 mg PO QDAY . 09/05/22 09/05/22 hydrochlorothiazide 12.5 mg tablet 12.5 mg PO DAILY , 09/05/22 09/05/22 lisinopril 10 mg tablet 10 mg PO DAILY . 09/05/22 09/05/22 Previous Rx's Medication Instructions Recorded azithromycin 250 mg tablet See Rx Instructions PO .COMPLEX 5 09/05/22 (Zithromax Z-Bartolo) days #6 tabs benzonatate 100 mg capsule 100 mg PO TID PRN cough #30 caps 09/05/22 methylprednisolone 4 mg tablets in See Rx Instructions .Route 09/05/22 a dose pack (Medrol (Bartolo)) .COMPLEX 6 days #21 tabs Allergies Allergy/AdvReac Type Severity Reaction Status Date / Time No Known Allergies Allergy Verified 09/05/22 18:15 [facility] Disclaimer: The information contained in this section may have been updated after the patient was seen, as this information can be updated by other users. 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
[2022-09-05 18:32] VITALS: BP 141/96; PULSE 99; RESP 18; TEMP 36.7; O2SAT 97
== END 2022-09-05 18:31 | disposition home or self-care (01) ==
PROVIDERS: Emergency Provider Nurse Practitioner; PCP Nurse Practitioner Family
DX: J20.9 Acute bronchitis, unspecified (principal); J01.90 Acute sinusitis, unspecified; F17.210 Nicotine dependence, cigarettes, uncomplicated; Z20.822 Contact with and (suspected) exposure to COVID-19
CPT/HCPCS: 99212; 99214; C9803; G0463; U0003; U0005

== ENCOUNTER → 2023-01-17 10:41 | Outpatient (CLI) | payer BC, SELFPAY ==
[2023-01-17 11:14] LABS: Basophils % 0.4 % (0.1-2.0); Eosinophils # 0.1 K/mm3 (0.0-0.4); Eosinophils % 1.2 % (0.1-12.0); Hematocrit 43.7 % (37.0-47.0); Hemoglobin 14.2 g/dL (12.2-16.2); Lymphocytes # 2.9 K/mm3 (0.7-4.5); Lymphocytes % 23.8 % (10-50); Mean Corpuscular HGB Conc 32.6 g/dL (31.8-35.4); Mean Corpuscular Volume 88.9 fl (81-99); Mean Platelet Volume 8.2 fl (7.4-10.4); Monocytes # 0.5 K/mm3 (0.1-1.0); Monocytes % 4.4 % (1.7-9.3); Neutrophils # 8.5 K/mm3 (1.8-7.8); Neutrophils % 70.3 % (37.0-80.0); Platelet Count 259 K/mm3 (142-424); Red Blood Count 4.92 M/mm3 (4.20-5.40); Red Cell Distribution Width 14.2 % (11.5-17.5); White Blood Count 12.1 K/mm3 (4.8-10.8)
[2023-01-17 12:03] LABS: Alanine Aminotransferase 34 U/L (12-78); Albumin Level 4.2 g/dl (3.5-5.0); Alkaline Phosphatase 187 U/L (38-126); Aspartate Amino Transferase 31 U/L (14-36); Bilirubin,Indirect 0.3 mg/dL (0.0-0.9); Bilirubin,Total 0.3 mg/dl (0.2-1.3); Bilirubin,Unconjugated 0.4 mg/dL (0.0-1.1); Blood Urea Nitrogen 14 mg/dl (7-17); Calcium 9.3 mg/dl (8.4-10.2); Carbon Dioxide 25 mmol/L (22.0-30.0); Chloride 105 mmol/L (98-107); Chol/HDL Ratio 3.7 (1-3.5); Cholesterol 182 mg/dl (140-200); Estimated Glomerular Filt Rate 89 ml/min (>60); GFR (African American) 108 ML/MIN (>60); Glucose 91 mg/dl (74-100); HDL Cholesterol 49 mg/dl (40-60); Magnesium 1.7 mg/dl (1.6-2.3); Sodium 136 mmol/L (136-145); Triglycerides 221 mg/dl (30-150); VLDL Cholesterol 44 mg/dL (0-40)
[2023-01-17 12:14] LABS: Direct LDL Cholesterol 99.11 mg/dL (100-129)
[2023-01-17 12:35] LABS: Thyroid Stimulating Hormone 0.78 uIU/mL (0.465-4.68)
== END ==
PROVIDERS: PCP Nurse Practitioner Family; Visit Provider Internal Medicine
DX: I10 Essential (primary) hypertension (principal)
CPT/HCPCS: 36415; 80048; 80061; 80076; 83735; 84439; 84443; 85025

== ENCOUNTER 2023-05-29 09:28 | Emergency (ER) | payer BC, SELFPAY ==
[2023-05-29 09:29] VITALS: BP 110/66; PULSE 99; RESP 18; TEMP 37; O2SAT 99; BMI 31.0
[2023-05-29 09:39] VITALS: BMI 30.8
--- NOTE | 2023-05-29 09:40 | XR_ITS ---
FINAL REPORT TECHNIQUE: Chest PA & Lateral CLINICAL HISTORY: cough x 3 days smoker (unknown for how long) COMPARISON: 04/17/2020 FINDINGS: 2 views of the chest were performed. The heart size is normal. The mediastinum is within normal limits. There is atelectasis of the right lung base. The left lung is clear. There are no pleural effusions. There is no pneumothorax. The bony thorax appears intact. IMPRESSION: Right lung base atelectasis. Reviewed, Interpreted and Dictated by Timbo Dickinson MD Transcribed by Valerie Obando Authenticated and [facility]
[2023-05-29 09:42] LABS: Coronavirus 19, PCR Not Detected (NotDetected); Influenza B, PCR Not Detected (NotDetected)
--- NOTE | 2023-05-29 09:50 | PC.NURSE ---
Dr. Zapien at [facility] for pt eval
--- NOTE | 2023-05-29 10:16 | PC.NURSE ---
Pt gone to RAD
--- NOTE | 2023-05-29 10:22 | PC.NURSE ---
Pt returned from RAD
[2023-05-29 11:13] VITALS: BP 96/65; PULSE 93; O2SAT 97
--- NOTE | 2023-05-29 11:16 | PC.NURSE ---
Rounded on pt. Pt provided with drink. Call light within reach.
[2023-05-29 11:26] LABS: Influenza A, PCR Detected (NotDetected)
--- NOTE | 2023-05-29 11:57 | HMH.EDGENADL ---
Discharge Plan Disposition Patient Disposition: Home, Self-Care Condition: Good Prescriptions Prescriptions: New doxycycline hyclate 100 mg tablet 100 mg PO BID 10 Days Qty: 20 0RF ondansetron 4 mg tablet,disintegrating 4 mg PO Q8H PRN (Reason: nausea and vomiting) 4 Days Qty: 12 0RF No Action colesevelam 625 mg tablet 1,875 mg PO BID bisoprolol fumarate 5 mg tablet 5 mg PO QDAY Qty: 90 3RF hydrochlorothiazide 12.5 mg tablet 12.5 mg PO DAILY Qty: 90 3RF lisinopril 10 mg tablet 10 mg PO DAILY Qty: 90 3RF Referrals Follow up/Referrals: Roberto Olivarez APRN [Primary Care Provider] - See instructions Activity Restrictions/Add. Instructions Additional Instructions/Restrictions: You were evaluated in the emergency department today. You tested positive for influenza A. It also subcu or developing a pneumonia on the right side, for which we have writing you with a prescription for antibiotic. Please cotton picker your prescription and take as needed for nausea and vomiting. Take Tylenol and ibuprofen at home as needed for pain. Your symptoms may persist for several days to weeks. Eat a bland diet until your diarrhea has resolved. Return to the emergency department for new or worsening symptoms. Follow-up with your primary care provider for reassessment. Clinical Impressions Clinical Impression: Influenza A Stand Alone Forms Stand Alone Forms: Work/School Release Instructions Patient Instructions: DI for Diarrhea and Traveler's Diarrhea -- Adult, DI for Diarrhea and Traveler's Diarrhea -- Child, DI for Nausea -- Adult, DI for Nausea -- Child Discharge ED Provider: Darleen Zapien General Adult HPI General Chief complaint: Nausea/Vomiting/Diarrhea Stated complaint: diarrhea, congestion, cough, weakness, fever Time Seen by Provider: 05/29/23 09:40 Mode of Arrival: Ambulatory Source of Information: Patient Limitations: No Limitations Description of Symptoms (Recalled from ER Triage Doc. by RN): c/o fever, diarrhea, cough since Monday History of Present Illness HPI narrative: This patient is a 48-year-old female who denies significant past medical history presented to the emergency department for evaluation with concern for cough, body aches, and diarrhea that have been going on since Monday. Significant other at home also has similar symptoms. No other concerns noted at this time. She is otherwise been well. She denies any history of cardiopulmonary issues. Related Data Home Medications Medication Instructions Recorded Confirmed colesevelam 625 mg tablet 1,875 mg PO BID 01/17/23 01/17/23 Previous Rx's Medication Instructions Recorded bisoprolol fumarate 5 mg tablet 5 mg PO QDAY . #90 tabs 01/17/23 hydrochlorothiazide 12.5 mg tablet 12.5 mg PO DAILY , #90 tabs 01/17/23 lisinopril 10 mg tablet 10 mg PO DAILY . #90 tabs 01/17/23 doxycycline hyclate 100 mg tablet 100 mg PO BID 10 days #20 tabs 05/29/23 ondansetron 4 mg disintegrating 4 mg PO Q8H PRN nausea and 05/29/23 tablet vomiting 4 days #12 tabs Allergies Allergy/AdvReac Type Severity Reaction Status Date / Time No Known Allergies Allergy Verified 01/17/23 09:47 [facility] Disclaimer: The information contained in this section may have been updated after the patient was seen, as this information can be updated by other users. Medical History Family history of ischemic heart disease before age 50 Surgical History History of partial surgical removal of colon Social History Smoking Status: Current every day smoker tobacco type: cigarettes packs per day: 1 second hand exposure: Yes alcohol intake: never substance use type: denies use and marijuana current occupational status: other Travel in the last 8 weeks: None household members: other
[2023-05-29 12:00] VITALS: BP 107/77; PULSE 90; RESP 17; TEMP 37.2; O2SAT 99
== END 2023-05-29 12:02 | disposition home or self-care (01) ==
PROVIDERS: Emergency Provider Emergency Medicine; PCP Nurse Practitioner Family
DX: J10.1 Influenza due to other identified influenza virus with other respiratory manifestations (principal); J10.2 Influenza due to other identified influenza virus with gastrointestinal manifestations; R05.9 Cough, unspecified; R19.7 Diarrhea, unspecified; R53.1 Weakness; R50.9 Fever, unspecified; R09.81 Nasal congestion; F17.210 Nicotine dependence, cigarettes, uncomplicated
CPT/HCPCS: 71046; 87636; 99283

== ENCOUNTER 2023-09-25 14:40 | Emergency (ER) | payer BC, SELFPAY ==
--- NOTE | 2023-09-25 | ECG_ITS ---
APPROVED REPORT Exam: Resting ECG HR:113 bpm ECG Measurements Heart Rate 113 AXES ME 112 P 58 QRSd 78 QRS 84 QT 317 T 74 QTc 384 Conclusion SINUS TACHYCARDIA WITH SHORT ME INTERVAL MODERATE ST DEPRESSION [0.05+ mV ST DEPRESSION] ABNORMAL ECG UNCONFIRMED REPORT Electronically signed by : FÉLIX GIORDANO, 09/25/2023 16:14:33
[2023-09-25 14:52] VITALS: BP 143/96; PULSE 119; RESP 18; TEMP 37.1; O2SAT 98; BMI 31.2
[2023-09-25 14:59] VITALS: BP 110/86; PULSE 99; O2SAT 97
[2023-09-25 15:00] VITALS: BP 127/81; PULSE 104; O2SAT 95
[2023-09-25 15:06] LABS: Microscopic, Urine URINE MICROSCOPIC (MICROSCOPIC)
[2023-09-25 15:10] LABS: Basophils # 0.1 K/mm3 (0-0.2); Basophils % 0.5 % (0.1-2.0); Eosinophils # 0.2 K/mm3 (0.0-0.4); Eosinophils % 1.4 % (0.1-12.0); Hematocrit 45.6 % (37.0-47.0); Hemoglobin 14.8 g/dL (12.2-16.2); Lymphocytes # 1.7 K/mm3 (0.7-4.5); Lymphocytes % 15.6 % (10-50); Mean Corpuscular HGB Conc 32.5 g/dL (31.8-35.4); Mean Corpuscular Hemoglobin 30.9 pg (27.0-31.2); Mean Corpuscular Volume 95.1 fl (81-99); Mean Platelet Volume 8.3 fl (7.4-10.4); Monocytes # 0.4 K/mm3 (0.1-1.0); Monocytes % 3.9 % (1.7-9.3); Neutrophils # 8.3 K/mm3 (1.8-7.8); Neutrophils % 78.5 % (37.0-80.0); Platelet Count 258 K/mm3 (142-424); Red Cell Distribution Width 14.4 % (11.5-17.5); White Blood Count 10.5 K/mm3 (4.8-10.8)
[2023-09-25 15:13] LABS: Appearance,Urine SL CLOUDY (Clear); Bilirubin,Urine 2+ (Negative); Blood, Urine 1+ (Negative); Color,Urine YELLOW (Yellow); Glucose,Urine (UA) Negative (Negative); Ketones,Urine 1+ (Negative); Leukocyte Esterase,Urine Negative (Negative); Nitrate,Urine Negative (Negative); Protein,Urine 1+ (Negative); Specific Gravity, Urine >= 1.030 (1.005-1.030); Urobilinogen,Urine 0.2 EU/dl (0.2)
[2023-09-25 15:15] LABS: Chloride 109 mmol/L (98-107); Potassium 3.4 mmoL/L (3.5-5.1); Sodium 138 mmol/L (136-145)
--- NOTE | 2023-09-25 15:16 | HMH.EDGENADL ---
Discharge Plan Disposition Patient Disposition: Home, Self-Care Prescriptions Prescriptions: New ondansetron 4 mg tablet,disintegrating 4 mg PO Q6H PRN (Reason: nausea and vomiting) 5 Days Qty: 20 0RF No Action colesevelam 625 mg tablet 1,875 mg PO BID bisoprolol fumarate 5 mg tablet 5 mg PO QDAY Qty: 90 3RF hydrochlorothiazide 12.5 mg tablet 12.5 mg PO DAILY Qty: 90 3RF lisinopril 10 mg tablet 10 mg PO DAILY Qty: 90 3RF doxycycline hyclate 100 mg tablet 100 mg PO BID 10 Days Qty: 20 0RF ondansetron 4 mg tablet,disintegrating 4 mg PO Q8H PRN (Reason: nausea and vomiting) 4 Days Qty: 12 0RF Referrals Follow up/Referrals: Roberto Olivarez APRN [Primary Care Provider] - See instructions Clinical Impressions Clinical Impression: Nausea vomiting and diarrhea, Dehydration Instructions Patient Instructions: DI for Acute Abdominal Pain Discharge ED Provider: Boom [facility] Adult HPI General Chief complaint: Abdominal Pain Stated complaint: v/d weak Time Seen by Provider: 09/25/23 15:06 Mode of Arrival: Ambulatory Source of Information: Patient Limitations: No Limitations Description of Symptoms (Recalled from ER Triage Doc. by RN): Patient reports she started feeling sick around midnight last night. Pt reports diarrhea, vomting and fever until about 10am this morning. Pt reports sharp pain in abdomen. 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 Alejo Ramirez at [facility] presents today with nausea vomiting diarrhea over the last 24 hours. States she feels extremely fatigued and dehydrated. No sick contacts that she is aware of. Vomiting has been nonbloody nonbilious no blood in the stool including hematochezia or melena. Patient states she has had some abdominal discomfort but has been crampy in nature but currently has no discomfort or pain. Related Data Home Medications Medication Instructions Recorded Confirmed colesevelam 625 mg tablet 1,875 mg PO BID 01/17/23 07/20/23 Previous Rx's Medication Instructions Recorded bisoprolol fumarate 5 mg tablet 5 mg PO QDAY . #90 tabs 01/17/23 hydrochlorothiazide 12.5 mg tablet 12.5 mg PO DAILY , #90 tabs 01/17/23 lisinopril 10 mg tablet 10 mg PO DAILY . #90 tabs 01/17/23 doxycycline hyclate 100 mg tablet 100 mg PO BID 10 days #20 tabs 05/29/23 ondansetron 4 mg disintegrating 4 mg PO Q8H PRN nausea and 05/29/23 tablet vomiting 4 days #12 tabs ondansetron 4 mg disintegrating 4 mg PO Q6H PRN nausea and 09/25/23 tablet vomiting 5 days #20 tabs Allergies Allergy/AdvReac Type Severity Reaction Status Date / Time No Known Allergies Allergy Verified 07/20/23 13:06 [facility] Disclaimer: The information contained in this section may have been updated after the patient was seen, as this information can be updated by other users. 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 current occupational exposures/hazards: No caffeine: Yes ROS Obtained: Yes All systems reviewed & no additional complaints except as documented Physical Exam General General appearance: alert and in no apparent distress Respiratory Respiratory exam: Present normal lung sounds bilaterally Cardiovascular Cardiovascular exam: Present regular rate and normal rhythm Abdominal Exam Abdominal exam: Present soft; Absent distention or tenderness Neurological Exam Neurological exam: Present alert and oriented X3 Medical Decision Making José Inquiry Pt receiving controlled substance: No Vital Signs: 09/25/23 14:52 09/25/23 14:59 09/25/23 15:00 Temperature 98.7 F Temperature Source Oral Pulse Rate 99 H 104 H Pulse Rate [Right Brachial] 119 H Respiratory Rate 18 Blood Pressure 110/86 127/81 Blood Pressure [Right Arm] 143/96 H Blood Pressure Mean 94 89 Blood Pressure Mean [Right Arm] 111 Blood Pressure Source [Right Arm] Automatic Cuff Blood Pressure Position [Right Arm] Sitting 02 Sat by Pulse Oximetry 98 97 95 Oxygen Delivery Method Room Air 09/25/23 15:30 Temperature Temperature Source Pulse Rate 96 H Pulse Rate [Right Brachial] Respiratory Rate Blood Pressure 141/95 H Blood Pressure [Right Arm] Blood Pressure Mean 108 Blood Pressure Mean [Right Arm] Blood Pressure Source [Right Arm] Blood Pressure Position [Right Arm] 02 Sat by Pulse Oximetry 99 Oxygen Delivery Method Lab Data Lab results reviewed: Yes I reviewed the patient's lab results. Lab Results 09/25/23 14:20: Lipase 35 09/25/23 15:00: WBC 10.5, RBC 4.80, Hgb 14.8, Hct 45.6, MCV 95.1, MCH 30.9, MCHC 32.5, RDW 14.4, Plt Count 258, MPV 8.3, Neut % (Auto) 78.5, Lymph % (Auto) 15.6, [place] % (Auto) 3.9, Eos % (Auto) 1.4, Baso % (Auto) 0.5, Neut # (Auto) 8.3 H, Lymph # (Auto) 1.7, [place] # (Auto) 0.4, Eos # (Auto) 0.2, Baso # (Auto) 0.1, Sodium 138, Potassium 3.4 L, Chloride 109 H, Carbon Dioxide 23, Anion Gap 9.4, BUN 11, Creatinine 0.70, Estimated Creat Clear 111, Estimated GFR 89, Est GFR ( Amer) 108, Glucose 111 H, Calcium 9.1, Total Bilirubin 0.7, AST 37 H, ALT 33, Alkaline Phosphatase 153 H, Total Protein 7.0, Albumin 4.0, Globulin 3.0, Albumin/Globulin Ratio 1.3, Urine Color Yellow, Urine Appearance Sl cloudy, Urine pH 6.0, Ur Specific [place] >= 1.030, Urine Protein 1+, Urine Glucose (UA) Negative, Urine Ketones 1+, Urine Blood 1+, Urine Nitrate Negative, Urine Bilirubin 2+ A, Urine Urobilinogen 0.2, Ur Leukocyte Esterase Negative, Urine RBC 3-5, Urine WBC Occasional, Ur Squamous Epith Cells 5-10, Urine Bacteria 3+ 09/25/23 15:00 09/25/23 15:00 Orders (Tests/Meds): ED MEDICATIONS Discontinued Medications Generic Name Dose Route Start Last Admin Trade Name Skye PRN Reason Stop Dose Admin Lactated Ringer's 1,000 mls @ 999 mls/hr 09/25/23 15:15 09/25/23 15:22 Lactated Ringer's 1000 Ml Bag IV 09/25/23 16:15 999 mls/hr .Q1H1M KIT Administration Ketorolac Tromethamine 15 mg 09/25/23 15:14 09/25/23 15:22 Ketorolac 30mg/Ml Vial IV 09/25/23 15:15 15 mg ONCE ONE Administration Ondansetron HCl 4 mg 09/25/23 15:14 09/25/23 15:21 Ondansetron 4mg/2ml Vial IV 09/25/23 15:15 4 mg ONCE ONE Administration ORDERS Category Date Time Status Complete Blood Count Auto Diff Stat Lab 09/25/23 15:00 Completed Comprehensive Metabolic Panel Stat Lab 09/25/23 15:00 Completed Lipase Stat Lab 09/25/23 14:20 Completed Urinalysis and Microscopic Stat Lab 09/25/23 15:00 Completed Urine Culture Stat Micro 09/25/23 15:00 Received Medical Decision Narrative: Patient is a 48-year-old female with above history with nausea vomiting diarrhea most likely viral in nature abdominal exam is completely benign this is not consistent with surgical emergency. Will give IV fluids pain medicine nausea medicine check basic labs and reassess. Reassessment 4:20 PM patient has a benign abdominal exam she still states she is intermittently having some cramping. I do not suspect that this is a ongoing inflammatory condition that would require surgical intervention therefore we will not get a CT scan at this point. Labs are essentially unremarkable. IV fluids and symptomatic medications have somewhat improved the patient. She has been given return precautions in 12 to 24 hours if her symptoms are worsening or significant or persistent to return the emergency department which point we will get CT imaging. At this point working diagnosis is viral gastroenteritis with most likely some gaseous intermittent crampy pain. Patient was discharged in stable and improved condition Critical Care Critical Care Time Critical Care Time: No
[2023-09-25 15:18] LABS: Alanine Aminotransferase 33 U/L (12-78); Albumin/Globulin Ratio 1.3 (1.1-1.8); Alkaline Phosphatase 153 U/L (38-126); Anion Gap 9.4 mEq/L (5-15); Aspartate Amino Transferase 37 U/L (14-36); Bilirubin,Total 0.7 mg/dl (0.2-1.3); Blood Urea Nitrogen 11 mg/dl (7-17); Carbon Dioxide 23 mmol/L (22.0-30.0); Creatinine Clearance Estimated 111 mL/min (50-200); Estimated Glomerular Filt Rate 89 ml/min (>60); GFR (African American) 108 ML/MIN (>60)
[2023-09-25 15:19] LABS: Calcium 9.1 mg/dl (8.4-10.2); Glucose 111 mg/dl (74-100)
[2023-09-25] MEDS: ONDANSETRON 4MG/2ML VIAL 4 MG IV (15:21)
[2023-09-25] MEDS: KETOROLAC 30MG/ML VIAL 15 MG IV (15:22)
[2023-09-25] MEDS: LACTATED RINGERS 1000ML 1,000 ML 999 ML IV (15:22)
[2023-09-25 15:25] LABS: Bacteria,Urine 3+ /lpf; WBC,Urine Occasional #/hpf (0-3)
[2023-09-25 15:30] VITALS: BP 141/95; PULSE 96; O2SAT 99
[2023-09-25 15:31] LABS: Lipase 35 U/L (23-300)
[2023-09-25 16:28] VITALS: BP 145/95; PULSE 97; RESP 16; TEMP 36.7
--- NOTE | 2023-09-30 09:35 | PC.NURSE ---
URINE CULTURE DISCUSSED WITH DR. RUSSELL. ABX SENT TO [facility]. [facility]RO MESSAGE LEFT FOR PT TO CALL FOR UPDATE
--- NOTE | 2023-09-30 09:42 | PC.NURSE ---
PT UPDATED AT THIS TIME ON ABX RX
== END 2023-09-25 16:28 | disposition home or self-care (01) ==
PROVIDERS: Student in an Organized Health Care Education/Training Program; Emergency Provider Emergency Medicine; PCP Nurse Practitioner Family
DX: E86.0 Dehydration (principal); B95.2 Enterococcus as the cause of diseases classified elsewhere; R00.0 Tachycardia, unspecified; R11.2 Nausea with vomiting, unspecified; R19.7 Diarrhea, unspecified; R53.83 Other fatigue; F17.210 Nicotine dependence, cigarettes, uncomplicated; E87.6 Hypokalemia
CPT/HCPCS: 80053; 81001; 83690; 85025; 87086; 93005; 96361; 96374; 96375; 99284; J2405

== ENCOUNTER 2024-04-17 17:21 | Emergency (ER) | payer BC, SELFPAY ==
[2024-04-17] VITALS (9 sets, daily range): BP systolic 104–150; BP diastolic 64–97; PULSE 60–101; RESP 16; TEMP 36.7–36.8; O2SAT 94–100; BMI 31.2
--- NOTE | 2024-04-17 17:25 | ED_ITS ---
Discharge Plan Disposition Patient Disposition: Home, Self-Care Condition: Good Prescriptions Prescriptions: No Action colesevelam 625 mg tablet 1,875 mg PO BID bisoprolol fumarate 5 mg tablet See Rx Instructions .ROUTE .COMPLEX Qty: 90 3RF Dose Instruction: Take 1 tablet by mouth once daily Rx Instructions: Take 1 tablet by mouth once daily hydrochlorothiazide 12.5 mg tablet See Rx Instructions .ROUTE .COMPLEX Qty: 90 3RF Dose Instruction: Take 1 tablet by mouth once daily Rx Instructions: Take 1 tablet by mouth once daily lisinopril 10 mg tablet See Rx Instructions .ROUTE .COMPLEX Qty: 90 3RF Dose Instruction: Take 1 tablet by mouth once daily Rx Instructions: Take 1 tablet by mouth once daily doxycycline hyclate 100 mg tablet 100 mg PO BID 10 Days Qty: 20 0RF ondansetron 4 mg tablet,disintegrating 4 mg PO Q8H PRN (Reason: nausea and vomiting) 4 Days Qty: 12 0RF ondansetron 4 mg tablet,disintegrating 4 mg PO Q6H PRN (Reason: nausea and vomiting) 5 Days Qty: 20 0RF ciprofloxacin HCl 500 mg tablet 500 mg PO BID Qty: 20 0RF Referrals Follow up/Referrals: Roberto Olivarez APRN [Primary Care Provider] - See instructions Activity Restrictions/Add. Instructions Additional Instructions/Restrictions: Stay well hydrated. Return if you have any numbness weakness tingling or vision changes. Please follow up with your primary care provider in 2-3 days. Please return to ED if your symptoms worsen, change in location, change in severity, new symptoms develop or if you become concerned for your health. Clinical Impressions Clinical Impression: Migraine Print Language Print Language: Iraqi Discharge ED Provider: Kiet Bhatt Adult HPI General Chief complaint: Headache Stated complaint: throbbing pain RT side of head, neck Time Seen by Provider: 04/17/24 17:24 History of Present Illness HPI narrative: Patient is a 49-year-old female with history of gastritis, hypertension. Patient presents today for headaches. She gets headaches often, roughly 3 times a week that usually resolves with Tylenol and Motrin at home, however since Monday she has had a persistent headache that has been refractory to Tylenol and ibuprofen [id number]. She reports that it is primarily right-sided in nature and occipital radiating into her right neck. She denies any fevers, vision changes, numbness, weakness, tingling, chest pain, shortness of breath, abdominal pain, vomiting, diarrhea, recent cough congestion runny nose. She is a smoker, social alcohol, no drug use. Denies any trauma to the area or recent chiropractic manipulations. Related Data Home Medications ?Medication ?Instructions ?Recorded ?Confirmed colesevelam 625 mg tablet 1,875 mg PO BID 01/17/23 07/20/23 Previous Rx's ?Medication ?Instructions ?Recorded doxycycline hyclate 100 mg tablet 100 mg PO BID 10 days #20 tabs 05/29/23 ondansetron 4 mg disintegrating 4 mg PO Q8H PRN nausea and 05/29/23 tablet vomiting 4 days #12 tabs ondansetron 4 mg disintegrating 4 mg PO Q6H PRN nausea and 09/25/23 tablet vomiting 5 days #20 tabs ciprofloxacin HCl 500 mg tablet 500 mg PO BID #20 tabs 09/30/23 bisoprolol fumarate 5 mg tablet See Rx Instructions .Route 03/26/24 .COMPLEX #90 tabs hydrochlorothiazide 12.5 mg tablet See Rx Instructions .Route 03/26/24 .COMPLEX #90 tabs lisinopril 10 mg tablet See Rx Instructions .Route 03/26/24 .COMPLEX #90 tabs Allergies Allergy/AdvReac Type Severity Reaction Status Date / Time No Known Allergies Allergy Verified 07/20/23 13:06 [facility] Disclaimer: The information contained in this section may have been updated after the patient was seen, as this information can be updated by other users. 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 current occupational exposures/hazards: No caffeine: Yes Other Medical History Have you received the Flu Vaccine for this season: No Have you received the Pneumonia Vaccine: No ROS Obtained: Yes All systems reviewed & no additional complaints except as documented Physical Exam General General appearance: alert and in no apparent distress Head Head exam: atraumatic and normocephalic Eye Eye exam: Present PERRL and EOMI; Absent nystagmus, periorbital swelling or periorbital tenderness ENT ENT exam: Present normal exam, normal oropharynx and mucous membranes moist Neck Neck exam: Present normal inspection, full ROM, trachea midline and tenderness (paraspinal on R); Absent meningismus or lymphadenopathy Chest Chest inspection: Present normal inspection and symmetric chest wall rise Respiratory Respiratory exam: Present normal lung sounds bilaterally; Absent respiratory distress, wheezes, stridor or accessory muscle use Cardiovascular Cardiovascular exam: Present regular rate and normal rhythm Abdominal Exam Abdominal exam: Present soft; Absent distention or tenderness Extremities Exam Extremities exam: Present normal inspection and full ROM Back Exam Back exam: Present normal inspection and full ROM; Absent tenderness (entire spine palpated no midline ttp) Neurological Exam Neurological exam: Present alert, oriented X3, CN II-XII intact, normal gait, reflexes normal and other (coordination wnl. ); Absent motor sensory deficit Psychiatric Psychiatric exam: Present normal mood Skin Skin exam: Present warm and dry Medical Decision Making Medical Records Screening: Per USPSTF and CDC recommendations, given the prevalence of disease in our region, it is our hospital?s policy to screen for HIV and viral Hepatitis for all patients aged 18 and over and those with ongoing risk factors. José Inquiry Pt receiving controlled substance: No Vital Signs: 04/17/24 17:22 04/17/24 17:26 04/17/24 17:30 Temperature 98.0 F Temperature Source Oral Pulse Rate 101 H 101 H Pulse Rate [Right Radial] 60 Respiratory Rate 16 Blood Pressure 146/94 H 150/97 H Blood Pressure [Right Arm] 146/94 H Blood Pressure Mean Blood Pressure Mean [Right Arm] 111 02 Sat by Pulse Oximetry 100 98 98 Oxygen Delivery Method Room Air 04/17/24 19:00 04/17/24 19:30 04/17/24 20:00 Temperature Temperature Source Pulse Rate 80 79 78 Pulse Rate [Right Radial] Respiratory Rate Blood Pressure 111/73 109/64 L 106/69 L Blood Pressure [Right Arm] Blood Pressure Mean 89 Blood Pressure Mean [Right Arm] 02 Sat by Pulse Oximetry 98 96 94 L Oxygen Delivery Method 04/17/24 20:30 04/17/24 20:41 04/17/24 20:44 Temperature 98.2 F Temperature Source Oral Pulse Rate 82 79 83 Pulse Rate [Right Radial] Respiratory Rate 16 Blood Pressure 130/76 130/76 104/69 L Blood Pressure [Right Arm] Blood Pressure Mean Blood Pressure Mean [Right Arm] 02 Sat by Pulse Oximetry 97 96 Oxygen Delivery Method Room Air Lab Data Lab Results 04/17/24 17:57: WBC 9.9, RBC 4.35, Hgb 13.2, Hct 38.8, MCV 89.2, MCH 30.2, MCHC 33.9, RDW 14.6, Plt Count 297, MPV 7.7, Neut % (Auto) 63.8, Lymph % (Auto) 28.3, Pershing % (Auto) 5.3, Eos % (Auto) 1.6, Baso % (Auto) 0.9, Neut # (Auto) 6.3, Lymph # (Auto) 2.8, Pershing # (Auto) 0.5, Eos # (Auto) 0.2, Baso # (Auto) 0.1, Sodium 137, Potassium 3.8, Chloride 108 H, Carbon Dioxide 25, Anion Gap 7.8, BUN 15, Creatinine 0.80, Estimated Creat Clear 96, Estimated GFR 76, Est GFR ( Amer) 92, Glucose 115 H, Calcium 8.4, Magnesium 1.9, Total Bilirubin 0.3, AST 36, ALT 36, Alkaline Phosphatase 128 H, Total Protein 6.2 L, Albumin 3.6, Globulin 2.6, Albumin/Globulin Ratio 1.4, Serum HCG, Qual Negative 04/17/24 17:57 04/17/24 17:57 Orders (Tests/Meds): ED MEDICATIONS Discontinued Medications Generic Name Dose Route Start Last Admin Trade Name Freq PRN Reason Stop Dose Admin Diphenhydramine HCl 25 mg 04/17/24 17:36 04/17/24 17:57 Diphenhydramine 50mg/Ml Vial IV 04/17/24 17:37 25 mg ONCE ONE Administration Prochlorperazine Edisylate 10 mg 04/17/24 17:36 04/17/24 17:58 Prochlorperazine 10mg/2ml Vial IV 04/17/24 17:37 10 mg ONCE ONE Administration Sodium Chloride 10 ml 04/17/24 18:00 Sodium Chloride 0.9% 10ml Flush Syringe IV 05/17/24 17:59 NEEDED PRN Maintain IV Site ORDERS Category Date Time Status CT head/brain wo con Stat Cat Scan 04/17/24 17:36 Completed Complete Blood Count Auto Diff Stat Lab 04/17/24 17:57 Completed Comprehensive Metabolic Panel Stat Lab 04/17/24 17:57 Completed HCG Qualitative, Serum Stat Lab 04/17/24 17:57 Completed Magnesium Stat Lab 04/17/24 17:57 Completed Medical Decision Narrative: In summary, this 49-year-old presents to the emergency department today with headache. On initial evaluation patient is afebrile, hemodynamically stable and in no acute distress. On exam, she is completely neurologically intact. Cranial nerves intact, no motor or sensory deficits. Coordination within normal limits and gait normal. No tenderness over the temporal region. No midline tenderness of the spine. There is some tenderness along the right paraspinous area, but again patient denies any trauma.. Differential diagnosis includes but is not limited to migraine headache, tension headache, tumor, SAH, ICH. Based on these concerns, I ordered CBC CMP magnesium CT head. Patient received Compazine, Benadryl for treatment. Labs personally reviewed demonstrate negative test. No evidence of anemia, no leukocytosis, no significant electrolyte derangement. CT imaging personally interpreted demonstrate no acute intracranial abnormality.. This confirmed by the radiologist final read. On reassessment patient reports complete resolution in her symptoms. She is remained neurovascularly intact while here in the emergency department and is tolerating oral intake. She is ambulatory with steady gait. Has good follow-up with PCP.. Instructed on Motrin and Tylenol dosing at home. Of note, social determinants of health include poor health literacy. At this time it was felt that the patient was safe to be discharged home. The patient was in agreement with this plan. The patient was given strict return precautions prior to being discharged from the emergency department. Critical Care Critical Care Time Critical Care Time: No
--- NOTE | 2024-04-17 17:36 | CT_ITS ---
PROCEDURE INFORMATION: Exam: CT Head Without Contrast Exam date and time: 04/17/2024 6:46 PM Age: 49 years old Clinical indication: Pain; Headache; Additional info: SHERIFF persistent and severe TECHNIQUE: Imaging protocol: Computed tomography of the head without contrast. Radiation optimization: All CT scans at this facility use at least one of these dose optimization techniques: automated exposure control; mA and/or kV adjustment per patient size (includes targeted exams where dose is matched to clinical indication); or iterative reconstruction. COMPARISON: No relevant prior studies available. FINDINGS: Brain: Normal. No hemorrhage. Unremarkable white matter. No mass effect. Cerebral ventricles: No ventriculomegaly. Paranasal sinuses: Visualized sinuses are unremarkable. No fluid levels. Mastoid air cells: Visualized mastoid air cells are well aerated. Bones: Unremarkable. No acute fracture. Soft tissues: Unremarkable. IMPRESSION: No acute intracranial abnormality.
[2024-04-17] MEDS: diphenhydrAMINE 50MG/ML VIAL 25 MG IV (17:57)
[2024-04-17] MEDS: PROCHLORPERAZINE 10MG/2ML VIAL 10 MG IV (17:58)
[2024-04-17 18:15] LABS: Basophils # 0.1 K/mm3 (0-0.2); Basophils % 0.9 % (0.1-2.0); Eosinophils # 0.2 K/mm3 (0.0-0.4); Eosinophils % 1.6 % (0.1-12.0); Hematocrit 38.8 % (37.0-47.0); Hemoglobin 13.2 g/dL (12.2-16.2); Lymphocytes # 2.8 K/mm3 (0.7-4.5); Lymphocytes % 28.3 % (10-50); Mean Corpuscular HGB Conc 33.9 g/dL (31.8-35.4); Mean Corpuscular Hemoglobin 30.2 pg (27.0-31.2); Mean Corpuscular Volume 89.2 fl (81-99); Mean Platelet Volume 7.7 fl (7.4-10.4); Monocytes # 0.5 K/mm3 (0.1-1.0); Monocytes % 5.3 % (1.7-9.3); Neutrophils # 6.3 K/mm3 (1.8-7.8); Neutrophils % 63.8 % (37.0-80.0); Platelet Count 297 K/mm3 (142-424); Red Blood Count 4.35 M/mm3 (4.20-5.40); Red Cell Distribution Width 14.6 % (11.5-17.5); White Blood Count 9.9 K/mm3 (4.8-10.8)
[2024-04-17 18:38] LABS: HCG Qualitative, Serum Negative (Negative)
[2024-04-17 18:42] LABS: Albumin Level 3.6 g/dl (3.5-5.0); Chloride 108 mmol/L (98-107); Sodium 137 mmol/L (136-145)
[2024-04-17 18:43] LABS: Potassium 3.8 mmoL/L (3.5-5.1)
[2024-04-17 18:45] LABS: Alanine Aminotransferase 36 U/L (12-78); Albumin/Globulin Ratio 1.4 (1.1-1.8); Alkaline Phosphatase 128 U/L (38-126); Anion Gap 7.8 mEq/L (5-15); Aspartate Amino Transferase 36 U/L (14-36); Bilirubin,Total 0.3 mg/dl (0.2-1.3); Blood Urea Nitrogen 15 mg/dl (7-17); Carbon Dioxide 25 mmol/L (22.0-30.0); Creatinine Clearance Estimated 96 mL/min (50-200); Estimated Glomerular Filt Rate 76 ml/min (>60); GFR (African American) 92 ML/MIN (>60); Globulin 2.6 g/dL (1.3-3.2); Total Protein,Serum 6.2 g/dl (6.3-8.2)
[2024-04-17 18:46] LABS: Calcium 8.4 mg/dl (8.4-10.2); Glucose 115 mg/dl (74-100); Magnesium 1.9 mg/dl (1.6-2.3)
== END 2024-04-17 20:45 | disposition home or self-care (01) ==
PROVIDERS: Emergency Provider Emergency Medicine; PCP Nurse Practitioner Family
DX: G43.909 Migraine, unspecified, not intractable, without status migrainosus (principal)
CPT/HCPCS: 70450; 80053; 83735; 84703; 85025; 96374; 96375; 99284; J0780; J1200

== ENCOUNTER 2024-06-07 16:32 | Emergency (ER) | payer BC, SELFPAY ==
[2024-06-07 17:50] VITALS: BP 114/74; PULSE 87; RESP 19; TEMP 37.2; O2SAT 98; BMI 31.4
--- NOTE | 2024-06-07 17:58 | ED_ITS ---
Discharge Plan Disposition Patient Disposition: Home, Self-Care Condition: Good Prescriptions Prescriptions: No Action colesevelam 625 mg tablet 1,875 mg PO BID bisoprolol fumarate 5 mg tablet See Rx Instructions .ROUTE .COMPLEX Qty: 90 3RF Dose Instruction: Take 1 tablet by mouth once daily Rx Instructions: Take 1 tablet by mouth once daily hydrochlorothiazide 12.5 mg tablet See Rx Instructions .ROUTE .COMPLEX Qty: 90 3RF Dose Instruction: Take 1 tablet by mouth once daily Rx Instructions: Take 1 tablet by mouth once daily lisinopril 10 mg tablet See Rx Instructions .ROUTE .COMPLEX Qty: 90 3RF Dose Instruction: Take 1 tablet by mouth once daily Rx Instructions: Take 1 tablet by mouth once daily doxycycline hyclate 100 mg tablet 100 mg PO BID 10 Days Qty: 20 0RF ciprofloxacin HCl 500 mg tablet 500 mg PO BID Qty: 20 0RF Referrals Follow up/Referrals: Roberto Olivarez APRN [Primary Care Provider] - See instructions Activity Restrictions/Add. Instructions Additional Instructions/Restrictions: *Monitor Temp, Over the counter Motrin or Tylenol as directed/as needed Tylenol every 4 hours and Motrin every 6 hours (as long as your family doctor has told you that you can take it) for fever or pain. and straight to ER if unable to lower temp less than 101.0 after medication given *Warm salt water gargles may help to soothe the throat *Throat Lozenges? *Warm fluids like tea with honey may help to soothe the throat? *Sleep elevated *Humidifier/Vaporizer Follow up IMMEDIATELY for new or worsening symptoms or no Noticeable improvement over the next 48-72 hours. 911 for difficulty breathing or swallowing You were tested for today for Mini Panel test that includes, RhinoVirus, Influenza A & B, RSV and COVID19 your test result should be back in the next 4 hours, you may check your results on the [facility] portal Clinical Impressions Clinical Impression: Viral upper respiratory infection Instructions Patient Instructions: DI for Viral Upper Respiratory Infection -- Adult Print Language Print Language: Croatian Discharge ED Provider: Delicia Steele [facility] HPI General Stated complaint: fever, sore throat, SHERIFF weak Mode of Arrival: Ambulatory Source of Information: Patient Limitations: No Limitations Time Seen by Provider: 06/07/24 17:58 Description of Symptoms (Recalled from Triage Doc. by RN): PATIENT C/O FEVER AND BODY ACHES X 2 DAYS HEENT Symptoms (Recalled from RN notes): No Resp Symptoms (Recalled from RN notes): No Skin Symptoms (Recalled from RN notes): No MS Symptoms (Recalled from RN notes): No Functional Status (Recalled from RN notes): WNL History of Present Illness Provider Complaint: Patient states that she woke up a couple days ago with fever, chills, and body aches States that she has still been having the symptoms since and was worried that she may have flu or something Related Data Home Medications ?Medication ?Instructions ?Recorded ?Confirmed colesevelam 625 mg tablet 1,875 mg PO BID 01/17/23 06/07/24 Previous Rx's ?Medication ?Instructions ?Recorded doxycycline hyclate 100 mg tablet 100 mg PO BID 10 days #20 tabs 05/29/23 ciprofloxacin HCl 500 mg tablet 500 mg PO BID #20 tabs 09/30/23 bisoprolol fumarate 5 mg tablet See Rx Instructions .Route 03/26/24 .COMPLEX #90 tabs hydrochlorothiazide 12.5 mg tablet See Rx Instructions .Route 03/26/24 .COMPLEX #90 tabs lisinopril 10 mg tablet See Rx Instructions .Route 03/26/24 .COMPLEX #90 tabs Allergies Allergy/AdvReac Type Severity Reaction Status Date / Time No Known Allergies Allergy Verified 07/20/23 13:06 Worker's Comp Is this a Worker's Comp case?: No [facility] Disclaimer: The information contained in this section may have been updated after the patient was seen, as this information can be updated by other users. 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 occupational exposures/hazards: No caffeine: Yes Have you lived/traveled outside [place] in past 30 days?: No Contact w/someone who lives/traveled outside [place] past 30 days?: No Exposure to someone with infectious disease in past 14 days?: No Do you have a fever (greater than 100.4 F or 38 C)?: No Have you tested positive for COVID-19: No Exposed to someone with COVID-19 in past 14 days?: No Do you have a sore throat?: Yes Do you have a cough?: No Do you have any weakness?: Yes Do you have any diarrhea?: No Are you experiencing any unusual bleeding?: No Do you have any muscle aches/pain?: No Do you have any abdominal pain?: No Are you experiencing loss of taste or smell?: No ROS Obtained: Yes All systems reviewed & no additional complaints except as documented and Yes Systems reviewed as appropriate & no additional complaints except as documented Constitutional Constitutional: Reports system reviewed and no additional complaints, except as documented, Reports as per HPI, Reports body ache, Reports chills and Reports fever(s) ENT Ears, Nose, Mouth, and Throat: Reports system reviewed and no additional complaints, except as documented, Reports as per HPI, Reports nasal congestion and Reports nasal discharge Cardiovascular Cardiovascular: Reports system reviewed and no additional complaints, except as documented and Reports as per HPI Respiratory Respiratory: Reports system reviewed and no additional complaints, except as documented and Reports as per HPI Gastrointestinal Gastrointestingal: Reports system reviewed and no additional complaints, except as documented and as per HPI Physical Exam General General appearance: alert and in no apparent distress ENT ENT exam: Present normal exam, mucous membranes moist and TM's normal bilaterally Respiratory Respiratory exam: Present normal lung sounds bilaterally; Absent respiratory distress or wheezes Cardiovascular Cardiovascular exam: Present regular rate, normal rhythm and normal heart sounds Abdominal Exam Abdominal exam: Present soft and normal bowel sounds; Absent distention or tenderness Neurological Exam Neurological exam: Present alert, oriented X3 and normal gait Medical Decision Making Medical Records Screening: Per USPSTF and CDC recommendations, given the prevalence of disease in our region, it is our hospital?s policy to screen for HIV and viral Hepatitis for all patients aged 18 and over and those with ongoing risk factors. José Inquiry Pt receiving controlled substance: No José was queried for this patient: No Vital Signs: 06/07/24 17:50 Temperature 99.0 F Temperature Source Oral Pulse Rate [Left Brachial] 87 Respiratory Rate 19 Blood Pressure [Left Arm] 114/74 Blood Pressure Mean [Left Arm] 87 Blood Pressure Source [Left Arm] Automatic Cuff Blood Pressure Position [Left Arm] Sitting 02 Sat by Pulse Oximetry 98 Oxygen Delivery Method Room Air Lab Data Lab results reviewed: Yes I reviewed the patient's lab results.
[2024-06-07 18:15] VITALS: BP 114/74; PULSE 87; RESP 19; TEMP 37.2; O2SAT 98
[2024-06-07 18:17] LABS: UTC Influenza A Antigen Negative (Negative); UTC Influenza B Antigen Negative (Negative)
[2024-06-07 18:25] LABS: Coronavirus 19, PCR Not Detected (NotDetected); Human Rhinovirus Not Detected (NotDetected); Influenza A, PCR Not Detected (NotDetected); Influenza B, PCR Not Detected (NotDetected); Respiratory Syncytial Virus Not Detected (NotDetected)
== END 2024-06-07 18:20 | disposition home or self-care (01) ==
PROVIDERS: Emergency Provider Nurse Practitioner; PCP Nurse Practitioner Family
DX: J06.9 Acute upper respiratory infection, unspecified (principal)
CPT/HCPCS: 87631; 87804; 99213; G0381

== ENCOUNTER 2024-06-08 09:44 | Emergency (ER) | payer BC, SELFPAY ==
--- NOTE | 2024-06-08 09:53 | ECG_ITS ---
APPROVED REPORT Exam: Resting ECG HR:97 bpm ECG Measurements Heart Rate [address] 138 P 62 QRSd 78 QRS 80 QT 355 T 81 QTc 410 Conclusion SINUS RHYTHM MODERATE ST DEPRESSION [0.05+ mV ST DEPRESSION] ABNORMAL ECG Electronically signed by : ISABEL HICKS, 06/11/2024 07:07:02
[2024-06-08 10:02] VITALS: BMI 31.2
--- NOTE | 2024-06-08 10:02 | XR_ITS ---
PROCEDURE INFORMATION: Exam: XR Chest Exam date and time: 06/08/2024 10:20 AM Age: 49 years old Clinical indication: Cough and shortness of breath; Additional info: SOA; Nonprod cough TECHNIQUE: Imaging protocol: Radiologic exam of the chest. Views: 2 views. PA and Lateral COMPARISON: CR XR CHEST 2V 05/29/2023 10:07 AM FINDINGS: Tubes, catheters and devices: Surgical clips overlie the right abdomen. Lungs: Moderate degree bilateral perihilar and basilar interstitial alveolar pulmonary edema versus infiltrates, pneumonia within the lungs. The pulmonary alveolar opacities are most prominent within the lower left lung. The bilateral upper lungs appear clear. Pleural spaces: No pleural effusion. No pneumothorax. Heart/Mediastinum: Mediastinum and keli appear unremarkable. Bones/joints: Mild generalized bony degenerative changes. Bony structures appear otherwise unremarkable. IMPRESSION: Moderate pulmonary edema versus infiltrates, pneumonia.
[2024-06-08 10:36] VITALS: BP 101/66; PULSE 102; RESP 16; TEMP 36.8; O2SAT 96; BMI 31.2
--- NOTE | 2024-06-08 10:48 | HMH.EDGENADL ---
Discharge Plan Disposition Patient Disposition: Home, Self-Care Prescriptions Prescriptions: New amoxicillin 500 mg tablet 1,000 mg PO TID 7 Days Qty: 42 0RF doxycycline hyclate 100 mg capsule 100 mg PO BID 7 Days Qty: 14 0RF No Action colesevelam 625 mg tablet 1,875 mg PO BID bisoprolol fumarate 5 mg tablet See Rx Instructions .ROUTE .COMPLEX Qty: 90 3RF Dose Instruction: Take 1 tablet by mouth once daily Rx Instructions: Take 1 tablet by mouth once daily hydrochlorothiazide 12.5 mg tablet See Rx Instructions .ROUTE .COMPLEX Qty: 90 3RF Dose Instruction: Take 1 tablet by mouth once daily Rx Instructions: Take 1 tablet by mouth once daily lisinopril 10 mg tablet See Rx Instructions .ROUTE .COMPLEX Qty: 90 3RF Dose Instruction: Take 1 tablet by mouth once daily Rx Instructions: Take 1 tablet by mouth once daily doxycycline hyclate 100 mg tablet 100 mg PO BID 10 Days Qty: 20 0RF ciprofloxacin HCl 500 mg tablet 500 mg PO BID Qty: 20 0RF Referrals Follow up/Referrals: Roberto Olivarez APRN [Primary Care Provider] - See instructions Activity Restrictions/Add. Instructions Additional Instructions/Restrictions: At this time it was felt you are safe to be discharged home. If new or worsening symptoms please do not hesitate to return the emergency department. Please take your antibiotics as prescribed and follow-up with your family doctor next week to ensure that symptoms are resolving. Clinical Impressions Clinical Impression: Pneumonia, Sore throat, Laryngitis Print Language Print Language: Tajik Discharge ED Provider: Donell Ambrosio General Adult HPI General Chief complaint: Upper Respiratory Infection Stated complaint: Pain in lungs, SOA, cough, pain in ears Time Seen by Provider: 06/08/24 10:27 Mode of Arrival: Ambulatory Source of Information: Patient Limitations: No Limitations Description of Symptoms (Recalled from ER Triage Doc. by RN): pt c/o a nonproductive cough, SOA, hoarseness, N/V, bilateral ear aches, and a SHERIFF that is sharp in nature and an 8/10. pt states she has been sick since 06/05. pt was seen in the [facility] yesterday and had a mini resp. panel that came back negative. pt denies chest pain or abd pain. History of Present Illness HPI narrative: Patient is a 49-year-old female with no pertinent past medical history who presents emergency department for evaluation of multiple complaints. Patient has had cough, shortness of breath, hoarseness of voice, nausea and vomiting, bilateral earaches and global headache that has been persistent over the last 3 to 4 days. She was seen in urgent care yesterday where mini respiratory panel was negative. No chest pain or abdominal pain. The pain is global throughout her body and an aching nature and also extends through her head which is similar quality, no vision changes reported. No other acute complaints at this time Related Data Home Medications ?Medication ?Instructions ?Recorded ?Confirmed colesevelam 625 mg tablet 1,875 mg PO BID 01/17/23 06/07/24 Previous Rx's ?Medication ?Instructions ?Recorded doxycycline hyclate 100 mg tablet 100 mg PO BID 10 days #20 tabs 05/29/23 ciprofloxacin HCl 500 mg tablet 500 mg PO BID #20 tabs 09/30/23 bisoprolol fumarate 5 mg tablet See Rx Instructions .Route 03/26/24 .COMPLEX #90 tabs hydrochlorothiazide 12.5 mg tablet See Rx Instructions .Route 03/26/24 .COMPLEX #90 tabs lisinopril 10 mg tablet See Rx Instructions .Route 03/26/24 .COMPLEX #90 tabs amoxicillin 500 mg tablet 1,000 mg (2 x 500 mg) PO TID 06/08/24 pneumonia 7 days #42 tabs doxycycline hyclate 100 mg capsule 100 mg PO BID pneumonia 7 days #14 06/08/24 caps Allergies Allergy/AdvReac Type Severity Reaction Status Date / Time No Known Allergies Allergy Verified 06/08/24 10:40 [facility] Disclaimer: The information contained in this section may have been updated after the patient was seen, as this information can be updated by other users. 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 current occupational exposures/hazards: No caffeine: Yes Have you lived/traveled outside [place] in past 30 days?: No Contact w/someone who lives/traveled outside [place] past 30 days?: No Exposure to someone with infectious disease in past 14 days?: No Do you have a fever (greater than 100.4 F or 38 C)?: No Have you tested positive for COVID-19: No Exposed to someone with COVID-19 in past 14 days?: No Do you have a sore throat?: No Do you have a cough?: Yes Do you have any weakness?: No Do you have any diarrhea?: No Are you experiencing any unusual bleeding?: No Do you have any muscle aches/pain?: No Do you have any abdominal pain?: No Are you experiencing loss of taste or smell?: No Other Medical History Have you received the Flu Vaccine for this season: No Have you received the Pneumonia Vaccine: No ROS Obtained: Yes Systems reviewed as appropriate & no additional complaints except as documented Physical Exam General General appearance: alert and in no apparent distress Head Head exam: atraumatic and normocephalic Eye Eye exam: Present PERRL and EOMI ENT ENT exam: Present mucous membranes moist and TM's normal bilaterally; Absent normal oropharynx (Mildly erythematous posterior oropharynx, uvula midline, mild tonsillar swelling bilaterally without exudate) Neck Neck exam: Present normal inspection and full ROM Chest Chest inspection: Present normal inspection and symmetric chest wall rise Respiratory Respiratory exam: Present normal lung sounds bilaterally; Absent respiratory distress Cardiovascular Cardiovascular exam: Present normal rhythm and tachycardia Abdominal Exam Abdominal exam: Present soft; Absent tenderness Extremities Exam Extremities exam: Present normal inspection Neurological Exam Neurological exam: Present alert and CN II-XII intact; Absent motor sensory deficit Psychiatric Psychiatric exam: Present normal affect Skin Skin exam: Present warm and dry Medical Decision Making Medical Records Screening: Per USPSTF and CDC recommendations, given the prevalence of disease in our region, it is our hospital?s policy to screen for HIV and viral Hepatitis for all patients aged 18 and over and those with ongoing risk factors. José Inquiry Pt receiving controlled substance: No Vital Signs: 06/08/24 10:36 Temperature 98.2 F Temperature Source Oral Pulse Rate [Left] 102 H Respiratory Rate 16 Blood Pressure [Right Arm] 101/66 L Blood Pressure Mean [Right Arm] 77 Blood Pressure Source [Right Arm] Automatic Cuff Blood Pressure Position [Right Arm] Sitting 02 Sat by Pulse Oximetry 96 Oxygen Delivery Method Room Air Orders (Tests/Meds): ED MEDICATIONS Generic Name Dose Route Start Last Admin Trade Name Skye PRN Reason Stop Dose Admin Dexamethasone 10 mg 06/08/24 10:47 Dexamethasone 1mg/1ml Intensol 10ml Udc (Er) PO 06/08/24 10:48 ONCE ONE ORDERS Category Date Time Status Chest XR 2 view (NOT portable) [XR chest 2V] Stat Exams 06/08/24 10:02 Taken Medical Decision Narrative: In summary patient is a 49-year-old female past medical history described above who presents emergency department for evaluation of multiple complaints described above including cough, nausea, global aches, shortness of breath. Patient is hemodynamically stable and nontoxic-appearing upon arrival, afebrile, saturating well on room air with minimal tachycardia. History and physical strongly consistent with viral syndrome versus pneumonia. Given this and that patient has already had respiratory panel conducted yesterday limited workup will initially be conducted with two-view chest x-ray. Clinically patient has laryngitis and have no concern for deep space infection given her full range of motion of her neck and no stridor. Initial interventions include dexamethasone p.o. Chest x-ray informally interpreted by me and consistent with left lower lobe pneumonia. Given this with sore throat coverage for pneumonia and possible strep pharyngitis will be conducted with amoxicillin and doxycycline. Upon repeat evaluation patient continued to saturate well on room air. Given this I feel the patient is appropriate for outpatient management at this time and workup with hematologic labs and advanced diagnostic imaging was considered but will be deferred given that I think is unnecessary at this point. Patient was discharged in stable condition will follow-up with family doctor was given return precautions. Critical Care Critical Care Time Critical Care Time: No
[2024-06-08] MEDS: DEXAMETHASONE 4MG TABLET 10 MG PO (10:56)
[2024-06-08 10:59] VITALS: BP 96/73; PULSE 96; RESP 16; TEMP 36.8; O2SAT 97
== END 2024-06-08 11:00 | disposition home or self-care (01) ==
PROVIDERS: Emergency Provider Emergency Medicine; PCP Nurse Practitioner Family
DX: J18.9 Pneumonia, unspecified organism (principal); J02.9 Acute pharyngitis, unspecified; J04.0 Acute laryngitis; R05.9 Cough, unspecified; R06.02 Shortness of breath; R11.2 Nausea with vomiting, unspecified; H92.03 Otalgia, bilateral; R51.9 Headache, unspecified
CPT/HCPCS: 71046; 93005; 99283; J8540